=== PATIENT | female | born 1940 | race Caucasian/White ===

== ENCOUNTER → 2017-12-29 12:23 | Outpatient (CLI) | payer MEDICARE, SELFPAY ==
--- NOTE | 2017-12-29 12:25 | ECHOD_ITS ---
Reason For Study: Edema Procedure This was a 2D Doppler, Color Flow transthoracic echocardiogram. Exam performed in department. Left Ventricle Normal LV size. Left ventricular systolic function is normal. The estimated ejection fraction is 55 %. Transmitral diastolic flow velocities suggest mild (stage 1) diastolic dysfunction (reversed pattern). No regional wall motion abnormalities noted. Right Ventricle Normal RV size. Normal systolic function. Atria Normal left atrium. Normal right atrium. Mitral Valve Normal mitral valve. Mild (1+) eccentric mitral valve insufficiency. Tricuspid Valve Normal tricuspid valve. Mild to moderate (1-2+) tricuspid valve insufficiency. Mild pulmonary hypertension. Pulmonary artery systolic pressure is 49 mmHg. Aortic Valve Trisinus/trileaflet aortic valve. Mild focal aortic valve thickening. Pulmonic Valve The pulmonic valve is not well visualized. Great Vessels Calcified aortic root. The pulmonary artery is normal size. Normal inferior vena cava. Pericardium/Pleural No pericardial effusion. MMode/2D Measurements & Calculations LVIDd: 5.4 cm IVSd: 1.3 cm Ao root diam: 3.0 cm LVIDs: 3.7 cm LVPWd: 1.0 cm LA dimension: 3.3 cm FS: 30.9 % LAV(MOD-sp4): 31.8 ml LA A4 area: 14.6 cm2 Time Measurements MV dec time: 0.20 sec Doppler Measurements & Calculations MV E max hiram: 79.3 cm/sec Lat Peak E' Hiram: 7.0 cm/sec Med Peak E' Hiram: 8.8 cm/sec MV A max hiram: 111.7 cm/sec E/E' lat: 11.4 E/E' med: 9.0 MV E/A: 0.71 MV V2 max: 138.7 cm/sec MV P1/2t max hirma: 106.9 cm/sec Ao V2 max: 159.9 cm/sec MV max P.7 mmHg MV P1/2t: 89.1 msec Ao max P.2 mmHg MV V2 mean: 86.0 cm/sec MV dec slope: 351.5 cm/sec2 Ao V2 mean: 99.8 cm/sec MV mean P.3 mmHg MVA(P1/2t): 2.5 cm2 Ao mean P.6 mmHg MV V2 VTI: 33.8 cm Ao V2 VTI: 31.2 cm LV V1 max: 111.7 cm/sec PA V2 max: 95.3 cm/sec TR max hiram: 332.5 cm/sec LV V1 max P.0 mmHg TR max P.2 mmHg LV V1 mean P.1 mmHg LV V1 mean: 65.5 cm/sec LV V1 VTI: 21.8 cm Interpretation Summary Normal LV size. Left ventricular systolic function is normal. The estimated ejection fraction is 55 %. Mild (1+) eccentric mitral valve insufficiency. Mild pulmonary hypertension. Pulmonary artery systolic pressure is 49 mmHg. Ordering Physician: Del Carty Referring Physician: Del Carty Performed By: Rickie Horne RCS
== END ==
DX: R60.0 Localized edema (principal)
CPT/HCPCS: 93306

== ENCOUNTER → 2018-08-25 09:35 | Outpatient (CLI) | payer MEDICARE, SELFPAY ==
[2018-08-25 12:26] LABS: Absolute Lymphocyte Count 1.81 X10^3/ul (0.83-4.51); Basophil# 0.03 X10^3/uL; Basophil% 0.5 % (0-1); Eosinophil# 0.18 X10^3/uL; Eosinophils% 2.8 % (0-5); Hematocrit 43.1 % (37-47); Lymphocyte # 1.81 X10^3/ul (4.0); Lymphocyte % 27.7 % (19-41); Mean Corp Hgb Conc 32.5 g/gl (32-36); Mean Corpuscular Volume 95.4 fL (81-99); Mean Platelet Vol. 9.8 fl (6.2-12.0); Monocyte# 0.53 X10^3/uL; Monocyte% 8.1 % (0-10); Neutrophil # 3.98 X10^3/uL (2.7-7.7); Neutrophil % 60.7 % (47-70); Platelet Count 273 K/mm3 (150-450); RBC Distribution Width CV 13.7 % (11.6-14.6); RBC Distribution Width SD 45.5 fl (35.1-43.9); Red Blood Count 4.52 M/mm3 (4.2-5.4); White Blood Count 6.5 K/mm3 (4.4-11.0)
[2018-08-25 12:44] LABS: POSITIVE COUNT NO; POSITIVE DIFFERENTIAL NO; POSITIVE MORPHOLOGY NO
[2018-08-25 13:19] LABS: ALB/GLOB Ratio 0.9 RATIO (0.9-2.4); AST(SGOT) 21 U/L (15-37); Alanine Aminotransfer ALT/SGPT 24 U/L (13-56); Albumin, Serum 3.3 g/dL (3.2-5.0); Alkaline Phosphatase 100 U/L (45-117); Anion Gap 8 (5-15); BUN 5 mg/dL (7-18); BUN/Creat Ratio 6.2 RATIO (10-20); Calcium,Total 8.9 mg/dL (8.5-10.1); Chloride 96 mmol/L (98-107); Cholesterol 201 mg/dL (200); EST Glomerular Filtration Rate 73 mL/min (>60); Est Glom Filt Rate - Afr Amer 89 mL/min (>60); Globulin 3.8 g/dL (2.2-4.2); Glucose 94 mg/dL (74-106); High Density Lipoprotein 67 mg/dL; Potassium 2.6 mmol/L (3.5-5.1); Protein, Total 7.1 g/dL (6.4-8.2); Sodium Level 136 mmol/L (136-145); Triglycerides 126 mg/dL; Very Low Density Lipoprotein 25 mg/dL (5-40)
== END ==
LOC: LAB.FUTURE 07-05 02:42 → BFHLAB 09-20 15:21
PROVIDERS: Family Provider Family Medicine; PCP Family Medicine; Visit Provider Family Medicine
DX: I10 Essential (primary) hypertension (principal); K21.9 Gastro-esophageal reflux disease without esophagitis
CPT/HCPCS: 36415; 80053; 80061; 85025

== ENCOUNTER → 2019-03-17 09:50 | Outpatient (CLI) | payer MEDICARE, SELFPAY ==
[2019-03-17 09:53] LABS: Bacteria 0 SEEN /hpf (None Seen); Mucous, Urine 0 SEEN /hpf (<or=2+); Red Blood Cells-Urine 0 SEEN /hpf (0-5); Squamous Epithelial Cells - UA 0 SEEN /hpf (5-10); White Blood Cells 0 SEEN /hpf (0-5)
[2019-03-17 12:39] LABS: Color, Urine Straw (Yellow); Glucose, Dipstick Normal (Normal); Ketone-Dipstick Negative (Negative); Leukocyte Esterase-Dipstick Negative /ul (Negative); Nitrite-Dipstick Negative (Negative); Occult Blood-Urine Negative /ul (Negative); Protein-Dipstick Negative (Negative); Urine Bilirubin Dipstick Negative (Negative); Urine Clarity Clear (Clear); Urine Urobilinogen Normal (Normal)
[2019-03-17 12:42] LABS: Absolute Lymphocyte Count 1.93 X10^3/uL (0.83-4.51); Absolute Neutrophil Count 9.2 X10^3/uL (2.0-7.7); Basophil# 0.05 X10^3/uL; Basophil% 0.4 % (0-1); Eosinophil# 0.09 X10^3/uL; Eosinophils% 0.7 % (0-5); Hematocrit 44.1 % (37-47); Hemoglobin 15.2 g/dL (12.0-15.0); Lymphocyte # 1.93 X10^3/ul (4.0); Mean Corp Hgb Conc 34.5 g/dL (32-36); Mean Corpuscular Hgb 32.5 pg (27.0-32.0); Mean Corpuscular Volume 94.2 fL (81-99); Mean Platelet Vol. 9.5 fl (6.2-12.0); Monocyte% 5.8 % (0-10); NRBC Flagged by Analyzer 0 % (0-5); Neutrophil # 9.22 X10^3/uL (2.7-7.7); Neutrophil % 76.4 % (47-70); Platelet Count 322 K/mm3 (150-450); RBC Distribution Width CV 13.2 % (11.6-14.6); RBC Distribution Width SD 45.1 fl (35.1-43.9); Red Blood Count 4.68 M/mm3 (4.2-5.4); White Blood Count 12.1 K/mm3 (4.4-11.0)
[2019-03-17 13:52] LABS: ALB/GLOB Ratio 0.9 RATIO (0.9-2.4); AST(SGOT) 14 U/L (15-37); Alanine Aminotransfer ALT/SGPT 16 U/L (13-56); Albumin, Serum 3.6 g/dL (3.2-5.0); Alkaline Phosphatase 124 U/L (45-117); Anion Gap 11 (5-15); BUN 6 mg/dL (7-18); BUN/Creat Ratio 6.9 RATIO (10-20); Calcium,Total 9.4 mg/dL (8.5-10.1); Chloride 88 mmol/L (98-107); Creatinine, Serum 0.87 mg/dL (0.55-1.02); EST Glomerular Filtration Rate 67 mL/min (>60); Est Glom Filt Rate - Afr Amer 81 mL/min (>60); Globulin 3.9 g/dL (2.2-4.2); Glucose 75 mg/dL (74-106); Protein, Total 7.5 g/dL (6.4-8.2); Sodium Level 134 mmol/L (136-145)
[2019-03-17 15:56] LABS: Potassium 2.1 mmol/L (3.5-5.1)
== END ==
PROVIDERS: Family Provider Family Medicine; PCP Family Medicine; Visit Provider Family Medicine
DX: I10 Essential (primary) hypertension (principal)
CPT/HCPCS: 36415; 80053; 81001; 85025

== ENCOUNTER → 2019-03-21 14:21 | Outpatient (CLI) | payer MEDICARE, SELFPAY ==
[2019-03-21 18:01] LABS: Anion Gap 8 (5-15); BUN 4 mg/dL (7-18); BUN/Creat Ratio 3.8 RATIO (10-20); Calcium,Total 9.3 mg/dL (8.5-10.1); Chloride 88 mmol/L (98-107); Creatinine, Serum 1.04 mg/dL (0.55-1.02); EST Glomerular Filtration Rate 54 mL/min (>60); Est Glom Filt Rate - Afr Amer 66 mL/min (>60); Glucose 95 mg/dL (74-106); Potassium 2.8 mmol/L (3.5-5.1); Sodium Level 131 mmol/L (136-145)
== END ==
LOC: LAB.FUTURE 09-20 15:23 → BFHLAB 09-20 15:23
PROVIDERS: Family Provider Family Medicine; PCP Family Medicine; Visit Provider Family Medicine
DX: E87.6 Hypokalemia (principal)
CPT/HCPCS: 36415; 80048

== ENCOUNTER → 2019-03-29 14:43 | Outpatient (CLI) | payer MEDICARE, SELFPAY ==
[2019-03-29 17:47] LABS: Anion Gap 7 (5-15); BUN 5 mg/dL (7-18); BUN/Creat Ratio 5.7 RATIO (10-20); Chloride 96 mmol/L (98-107); Creatinine, Serum 0.88 mg/dL (0.55-1.02); EST Glomerular Filtration Rate 66 mL/min (>60); Est Glom Filt Rate - Afr Amer 80 mL/min (>60); Glucose 105 mg/dL (74-106); Potassium 3.4 mmol/L (3.5-5.1); Sodium Level 136 mmol/L (136-145)
== END ==
LOC: LAB.FUTURE 03-30 10:48 → BFHLAB 09-20 15:24
PROVIDERS: Family Provider Family Medicine; PCP Family Medicine; Visit Provider Family Medicine
DX: I10 Essential (primary) hypertension (principal); E87.6 Hypokalemia; Z51.81 Encounter for therapeutic drug level monitoring
CPT/HCPCS: 36415; 80048

== ENCOUNTER → 2019-08-29 13:13 | Outpatient (CLI) | payer MEDICARE, SELFPAY ==
[2019-08-29 13:02] VITALS: BMI 32.5
--- NOTE | 2019-08-29 13:14 | RAD_ITS ---
STUDY: X-RAY - LEFT HAND, ATTENTION FOURTH AND FIFTH FINGERS REASON FOR EXAM: Female, 78 years old. 4-5 FINGER INJURY, FALL LAST WEEK TECHNIQUE: 3 view(s) of the finger were obtained. COMPARISON: None. FINDINGS: Normal metacarpal head. Normal metacarpophalangeal joint. Normal proximal phalanx. Normal middle phalanx. Normal distal phalanx. Normal proximal interphalangeal joint. Normal distal interphalangeal joint. RAD/Finger(s) Min 2 Views IMPRESSION: Normal x-ray examination of the finger. Electronically Signed: Devon Zendejas, at 13:51 EST , Service support ,
== END ==
PROVIDERS: PCP Family Medicine; Referring Provider Physician Assistant Surgical; Visit Provider Physician Assistant Surgical
DX: S60.222A Contusion of left hand, initial encounter (principal); S60.00XA Contusion of unspecified finger without damage to nail, initial encounter; S60.052A Contusion of left little finger without damage to nail, initial encounter; X58.XXXA Exposure to other specified factors, initial encounter; Y93.9 Activity, unspecified; Y92.9 Unspecified place or not applicable; Y99.9 Unspecified external cause status
CPT/HCPCS: 73140

== ENCOUNTER → 2019-09-05 16:04 | Outpatient (CLI) | payer MEDICARE, SELFPAY ==
[2019-08-29 13:02] VITALS: BMI 32.5
[2019-09-05 17:30] LABS: Anion Gap 4 (5-15); BUN 8 mg/dL (7-18); BUN/Creat Ratio 7.1 RATIO (10-20); Calcium,Total 9.2 mg/dL (8.5-10.1); Chloride 97 mmol/L (98-107); Creatinine, Serum 1.12 mg/dL (0.55-1.02); EST Glomerular Filtration Rate 50 mL/min (>60); Est Glom Filt Rate - Afr Amer 60 mL/min (>60); Glucose 108 mg/dL (74-106); Potassium 2.9 mmol/L (3.5-5.1); Sodium Level 135 mmol/L (136-145)
== END ==
PROVIDERS: PCP Family Medicine; Visit Provider Family Medicine
DX: I10 Essential (primary) hypertension (principal)
CPT/HCPCS: 36415; 80048

== ENCOUNTER → 2019-09-21 14:10 | Outpatient (CLI) | payer MEDICARE, SELFPAY ==
[2019-08-29 13:02] VITALS: BMI 32.5
[2019-09-21 16:12] LABS: Anion Gap 8 (5-15); BUN 4 mg/dL (7-18); BUN/Creat Ratio 4.9 RATIO (10-20); Calcium,Total 8.7 mg/dL (8.5-10.1); Chloride 88 mmol/L (98-107); Creatinine, Serum 0.82 mg/dL (0.55-1.02); EST Glomerular Filtration Rate 72 mL/min (>60); Est Glom Filt Rate - Afr Amer 87 mL/min (>60); Glucose 90 mg/dL (74-106); Potassium 2.6 mmol/L (3.5-5.1); Sodium Level 128 mmol/L (136-145)
== END ==
PROVIDERS: PCP Family Medicine; Visit Provider Family Medicine
DX: I10 Essential (primary) hypertension (principal)
CPT/HCPCS: 36415; 80048

== ENCOUNTER → 2019-12-19 09:57 | Outpatient (CLI) | payer MEDICARE, SELFPAY ==
[2019-08-29 13:02] VITALS: BMI 32.5
[2019-12-19 12:15] LABS: Absolute Lymphocyte Count 1.72 X10^3/uL (0.83-4.51); Absolute Neutrophil Count 4.2 X10^3/uL (2.0-7.7); Basophil# 0.04 X10^3/uL; Basophil% 0.6 % (0-1); Eosinophil# 0.16 X10^3/uL; Eosinophils% 2.4 % (0-5); Hematocrit 43.2 % (37-47); Hemoglobin 14.7 g/dL (12.0-15.0); Lymphocyte # 1.72 X10^3/ul (4.0); Lymphocyte % 25.6 % (19-41); Mean Corpuscular Hgb 33.9 pg (27.0-32.0); Mean Corpuscular Volume 99.5 fL (81-99); Mean Platelet Vol. 9.8 fl (6.2-12.0); Monocyte# 0.55 X10^3/uL; Monocyte% 8.2 % (0-10); NRBC Flagged by Analyzer 0 % (0-5); Neutrophil % 62.6 % (47-70); Platelet Count 303 K/mm3 (150-450); RBC Distribution Width CV 12.1 % (11.6-14.6); RBC Distribution Width SD 44.8 fl (35.1-43.9); Red Blood Count 4.34 M/mm3 (4.2-5.4); White Blood Count 6.7 K/mm3 (4.4-11.0)
[2019-12-19 13:00] LABS: ALB/GLOB Ratio 0.8 RATIO (0.9-2.4); AST(SGOT) 19 U/L (15-37); Alanine Aminotransfer ALT/SGPT 30 U/L (13-56); Albumin, Serum 3.3 g/dL (3.2-5.0); Alkaline Phosphatase 129 U/L (45-117); Anion Gap 7 (5-15); BUN 5 mg/dL (7-18); BUN/Creat Ratio 6.5 RATIO (10-20); Chloride 92 mmol/L (98-107); Cholesterol 195 mg/dL (200); Creatinine, Serum 0.77 mg/dL (0.55-1.02); EST Glomerular Filtration Rate 77 mL/min (>60); Est Glom Filt Rate - Afr Amer 93 mL/min (>60); Globulin 4.1 g/dL (2.2-4.2); Glucose 100 mg/dL (74-106); High Density Lipoprotein 83 mg/dL; Potassium 2.8 mmol/L (3.5-5.1); Protein, Total 7.4 g/dL (6.4-8.2); Sodium Level 134 mmol/L (136-145); Triglycerides 100 mg/dL; Very Low Density Lipoprotein 20 mg/dL (5-40)
== END ==
PROVIDERS: PCP Family Medicine; Visit Provider Family Medicine
DX: I10 Essential (primary) hypertension (principal)
CPT/HCPCS: 36415; 80053; 80061; 85025

== ENCOUNTER → 2020-02-19 10:41 | Outpatient (CLI) | payer MEDICARE, SELFPAY ==
[2019-08-29 13:02] VITALS: BMI 32.5
== END ==
PROVIDERS: PCP Family Medicine; Referring Provider Family Medicine; Visit Provider Family Medicine
DX: R00.0 Tachycardia, unspecified (principal); I10 Essential (primary) hypertension
CPT/HCPCS: 93225; 93226

== ENCOUNTER → 2020-08-02 13:46 | Outpatient (CLI) | payer MEDICARE, SELFPAY ==
[2019-08-29 13:02] VITALS: BMI 32.5
[2020-08-02 14:59] LABS: Absolute Lymphocyte Count 1.28 X10^3/uL (0.83-4.51); Absolute Neutrophil Count 6.9 X10^3/uL (2.0-7.7); Basophil# 0.03 X10^3/uL; Basophil% 0.3 % (0-1); Eosinophils% 1.1 % (0-5); Hemoglobin 14.1 g/dL (12.0-15.0); Lymphocyte # 1.28 X10^3/ul (4.0); Lymphocyte % 14.2 % (19-41); Mean Corp Hgb Conc 35.3 g/dL (32-36); Mean Corpuscular Hgb 33.6 pg (27.0-32.0); Mean Corpuscular Volume 95.2 fL (81-99); Mean Platelet Vol. 8.8 fl (6.2-12.0); Monocyte# 0.64 X10^3/uL; Monocyte% 7.1 % (0-10); NRBC Flagged by Analyzer 0 % (0-5); Neutrophil # 6.94 X10^3/uL (2.7-7.7); Neutrophil % 76.7 % (47-70); Platelet Count 288 K/mm3 (150-450); RBC Distribution Width SD 41.6 fl (35.1-43.9)
[2020-08-02 16:14] LABS: ALB/GLOB Ratio 0.8 RATIO (0.9-2.4); AST(SGOT) 17 U/L (15-37); Alanine Aminotransfer ALT/SGPT 15 U/L (13-56); Albumin, Serum 3.3 g/dL (3.2-5.0); Alkaline Phosphatase 117 U/L (45-117); Anion Gap 7 (5-15); BUN 5 mg/dL (7-18); BUN/Creat Ratio 5.9 RATIO (10-20); Calcium,Total 8.9 mg/dL (8.5-10.1); Chloride 77 mmol/L (98-107); Creatinine, Serum 0.85 mg/dL (0.55-1.02); EST Glomerular Filtration Rate 68 mL/min (>60); Est Glom Filt Rate - Afr Amer 83 mL/min (>60); Glucose 95 mg/dL (74-106); Potassium 2.4 mmol/L (3.5-5.1); Protein, Total 7.3 g/dL (6.4-8.2); Sodium Level 124 mmol/L (136-145)
== END ==
PROVIDERS: PCP Family Medicine; Visit Provider Family Medicine
DX: I10 Essential (primary) hypertension (principal); E87.6 Hypokalemia
CPT/HCPCS: 36415; 80053; 85025

== ENCOUNTER → 2020-12-31 09:24 | Outpatient (CLI) | payer MEDICARE, SELFPAY ==
[2019-08-29 13:02] VITALS: BMI 32.5
[2020-12-31 10:14] LABS: Absolute Lymphocyte Count 1.57 X10^3/uL (0.83-4.51); Absolute Neutrophil Count 4.6 X10^3/uL (2.0-7.7); Basophil# 0.04 X10^3/uL; Basophil% 0.6 % (0-1); Eosinophil# 0.15 X10^3/uL; Eosinophils% 2.2 % (0-5); Hematocrit 40.9 % (37-47); Hemoglobin 13.8 g/dL (12.0-15.0); Lymphocyte # 1.57 X10^3/ul (0.83-4.51); Lymphocyte % 22.9 % (19-41); Mean Corp Hgb Conc 33.7 g/dL (32-36); Mean Corpuscular Hgb 32.5 pg (27.0-32.0); Mean Corpuscular Volume 96.2 fL (81-99); Mean Platelet Vol. 9.1 fl (6.2-12.0); Monocyte# 0.54 X10^3/uL; Monocyte% 7.9 % (0-10); NRBC Flagged by Analyzer 0 % (0-5); Neutrophil # 4.55 X10^3/uL (2.7-7.7); Neutrophil % 66.1 % (47-70); Platelet Count 305 K/mm3 (150-450); RBC Distribution Width CV 12.3 % (11.6-14.6); RBC Distribution Width SD 43.5 fl (35.1-43.9); Red Blood Count 4.25 M/mm3 (4.2-5.4); White Blood Count 6.9 K/mm3 (4.4-11.0)
[2020-12-31 11:12] LABS: ALB/GLOB Ratio 0.9 RATIO (0.9-2.4); AST(SGOT) 15 U/L (15-37); Alanine Aminotransfer ALT/SGPT 12 U/L (13-56); Albumin, Serum 3.4 g/dL (3.2-5.0); Alkaline Phosphatase 111 U/L (45-117); Anion Gap 5 (5-15); BUN 5 mg/dL (7-18); BUN/Creat Ratio 6.3 RATIO (10-20); Calcium,Total 9.3 mg/dL (8.5-10.1); Chloride 90 mmol/L (98-107); EST Glomerular Filtration Rate 74 mL/min (>60); Est Glom Filt Rate - Afr Amer 89 mL/min (>60); Globulin 3.9 g/dL (2.2-4.2); Glucose 95 mg/dL (74-106); Potassium 2.8 mmol/L (3.5-5.1); Protein, Total 7.3 g/dL (6.4-8.2); Sodium Level 132 mmol/L (136-145)
== END ==
PROVIDERS: PCP Family Medicine; Visit Provider Family Medicine
DX: I10 Essential (primary) hypertension (principal); E87.6 Hypokalemia
CPT/HCPCS: 36415; 80053; 85025

== ENCOUNTER → 2021-07-01 17:46 | Outpatient (CLI) | payer MEDICARE, SELFPAY ==
--- NOTE | 2021-07-01 18:00 | RAD_ITS ---
History: PAIN OVER LUMBAR SPINE EXAMINATION/TECHNIQUE: XR Spine Lumbar Min 4 Views: COMPARISON: None FINDINGS: VERTEBRAE: Preserved vertebral body height. No fracture. Mild degenerative anterolisthesis of L4 on L5. Degenerative changes of the posterior elements. Preservation of the normal lumbar lordosis. DISCS: Degenerative changes are noted. INCLUDED ABDOMEN: Included bowel gas pattern is non-obstructive. Moderate atherosclerotic calcification of the abdominal aorta. RAD/L/S Spine Min 4 Views IMPRESSION: No fracture or other acute abnormality. Degenerative changes. at 0800 Reported and signed by: Turner Coon MD Electronically Signed: Turner Coon MD at 7:59 EST Tel , Service support ,
--- NOTE | 2021-07-01 18:10 | RAD_ITS ---
EXAM: XR RIGHT HIP WITH PELVIS WHEN PERFORMED, 2 OR 3 VIEWS : 1940 CLINICAL INDICATION: RIGHT LEG WEAKNESS TECHNIQUE: Two or three views of the right hip with pelvis when performed. This report was created using [employer] report generation technology. COMPARISON: None. FINDINGS: BONES/JOINTS: Unremarkable. No displaced fracture. No destructive or sclerotic lesions. Note that overlapping bowel shadows may however obscure fine detail. Sacroiliac joint is unremarkable. No widening of the pubic symphysis. The articular structures are unremarkable. SOFT TISSUES: Unremarkable. No soft tissue swelling or gas. RAD/HIP, UNI W/ Pelvis 2-3 Views IMPRESSION: No evidence of displaced pelvic or hip fracture. at 0759 Reported and signed by: Turner Coon MD Electronically Signed: Turner Coon MD at 7:59 EST Tel , Service support ,
== END ==
PROVIDERS: PCP Family Medicine; Visit Provider Family Medicine
DX: M51.16 Intervertebral disc disorders with radiculopathy, lumbar region (principal)
CPT/HCPCS: 72110; 73502

== ENCOUNTER 2021-07-22 16:02 | Outpatient (CLI) | payer MEDICARE, SELFPAY ==
--- NOTE | 2021-07-22 16:06 | RAD_ITS ---
INDICATION: L HAND NUMBNESS EXAMINATION/TECHNIQUE: X-RAY - XR Spine Thoracic 3 Views COMPARISON: Cervical spine x-rays 07/22/2021. Also compared with lumbar spine x-rays 07/01/2021 FINDINGS: Smooth, gradual lateral curvature, convex right. This is likely positional. Normal kyphotic curvature. T8 compression fracture with up to 75% vertebral body height loss. No other compression fracture. Multilevel intervertebral disc height loss and degenerative endplate changes most notably in the mid upper thoracic spine. Visualized portions of the proximal lumbar spine show moderately advanced degenerative disc and endplate changes and prominent right-sided osteophytes. Dense intimal calcifications thoracic aortic arch. RAD/Thoracic Spine 3 Views IMPRESSION: Degenerative changes as above. T8 compression fracture appears to been present at least dating back to 07/01/2021. Electronically Signed: Alan Garcia DO at 0:11 EST Tel , Service support ,
--- NOTE | 2021-07-22 16:06 | RAD_ITS ---
INDICATION: L HAND NUMBNESS EXAMINATION/TECHNIQUE: X-RAY - XR Spine Cervical 4 or 5 Views COMPARISON: Thoracic spine x-rays 07/22/2021 FINDINGS: VERTEBRAE: Preserved vertebral body height. No fracture. No spondylolisthesis. Preservation of the normal cervical lordosis. There is significant facet arthropathy C2-3 and C3-4 levels which does appear to result in some neural foraminal narrowing on the oblique views however assessment is limited with suboptimal projections. DISCS: Mild C4-C5 and significant C5-6 degenerative disc and endplate changes. The lower half of C6 and C7 vertebral bodies are not visualized due to overlying shoulder girdle. NECK SOFT TISSUES: No prevertebral soft tissue widening. LUNG APICES: Clear. Note of thoracic aortic arch intimal calcifications. Likely intra-articular loose bodies right glenohumeral joint. RAD/Cerv Spine 4 or 5 Views IMPRESSION: No evidence of acute fracture or spondylolisthesis. Significant degenerative facet and endplate changes as above. Electronically Signed: Alan Garcia DO at 0:06 EST Tel , Service support ,
== END 2021-07-22 23:59 | disposition short-term general hospital (02) ==
LOC: RAD 16:04
PROVIDERS: PCP Family Medicine; Referring Provider Family Medicine; Visit Provider Family Medicine
DX: M51.16 Intervertebral disc disorders with radiculopathy, lumbar region (principal)
CPT/HCPCS: 72050; 72072

== ENCOUNTER 2021-07-30 17:28 | Outpatient (CLI) | payer MEDICARE, SELFPAY ==
--- NOTE | 2021-07-30 18:15 | MRI_ITS ---
STUDY: MRI LUMBAR SPINE WITHOUT CONTRAST REASON FOR EXAM: Female, 80 years old. RT SIDED PAIN AND WEAKNESS TECHNIQUE: Standardized fat and water weighted pulse sequences were obtained in the sagittal and axial planes. COMPARISON: 07/01/2021 lumbar spine radiograph FINDINGS: T12-L1: Normal endplates. Normal disc height, hydration and morphology. Normal bilateral facet joints. Normal central canal and bilateral lateral recesses. Normal bilateral intervertebral neural foramina. Normal lumbar lordosis. Grade 1 anterolisthesis at L3-4 and L4-5. Dextro listhesis of L1 on L2 and levo listhesis of L3 on L4 redemonstrated with similar slight levoscoliosis centered on L2-3. Normal conus medullaris that terminates at the level of L1 L1-2: MODIC type II endplate change. Disc bulge and mild bilateral facet arthrosis with mild spinal canal stenosis. No significant neural foraminal stenosis. L2-3: MODIC type II endplate change. Disc bulge and mild bilateral facet arthrosis with mild effacement of the spinal canal. Mild right neural foraminal stenosis. L3-4: Normal endplates. Disc bulge with right lateral recess protrusion and superior migration. There is also epidural lipomatosis and moderate facet hypertrophy with moderate effacement of the spinal canal. Severe right and mild left neural foraminal stenosis. L4-5: Normal endplates. Posterior disc uncovering. Moderate bilateral facet arthrosis. Normal central canal and bilateral lateral recesses. Normal bilateral intervertebral neural foramina. L5-S1: Normal endplates. Normal disc height, hydration and morphology. Mild left facet arthrosis. Normal central canal and bilateral lateral recesses. Normal bilateral intervertebral neural foramina. Normal visualized sacral ala. There is mild to moderate paraspinal muscular atrophy. Small left renal cysts. MRI/Spine Lumbar (Routine) IMPRESSION: Severe right and mild left neural foraminal stenosis at L3-4. There is also moderate effacement of the spinal canal at this level. Mild effacement of the spinal canal and mild right neural foraminal stenosis at L2-3. Multilevel spondylolisthesis and mild levoscoliosis redemonstrated. Electronically Signed: Favio Monroy MD at 3:19 EST Tel , Service support ,
== END 2021-07-30 23:59 | disposition short-term general hospital (02) ==
PROVIDERS: PCP Family Medicine; Visit Provider Family Medicine
DX: M51.16 Intervertebral disc disorders with radiculopathy, lumbar region (principal)
CPT/HCPCS: 72148

== ENCOUNTER → 2021-11-20 | Outpatient (CLI) | payer MEDICARE, SELFPAY ==
--- NOTE | 2021-11-20 11:39 | RAD_ITS ---
STUDY: X-RAY - RIGHT KNEE REASON FOR EXAM: Female, 80 years old. Pain. TECHNIQUE: 4 view(s) of the knee. COMPARISON: None. FINDINGS: Normal visualized distal femur. Normal visualized proximal tibia and fibula. Normal proximal tibiofibular articulation. Moderate arthrosis of the medial compartment osteophytes. Mild lateral compartmental arthrosis with osteophytes. Mild arthrosis of the patellofemoral compartment. The soft tissue structures are unremarkable. RAD/Knee 4 or More Views IMPRESSION: Tricompartmental arthrosis as described. No acute abnormality, chondrocalcinosis or erosive changes. Electronically Signed: Alfa Vivas MD at 12:17 EDT ,
== END | disposition home or self-care (01) ==
PROVIDERS: PCP Family Medicine; Referring Provider Family Medicine; Visit Provider Family Medicine
DX: M25.561 Pain in right knee (principal)
CPT/HCPCS: 73564

== ENCOUNTER → 2021-11-27 | Outpatient (CLI) | payer MEDICARE, SELFPAY ==
[2021-11-27 10:00] LABS: Absolute Lymphocyte Count 1.58 X10^3/uL (0.83-4.51); Absolute Neutrophil Count 4.2 X10^3/uL (2.0-7.7); Basophil# 0.04 X10^3/uL; Basophil% 0.6 % (0-1); Eosinophil# 0.03 X10^3/uL; Eosinophils% 0.5 % (0-5); Hematocrit 40.4 % (37-47); Hemoglobin 13.9 g/dL (12.0-15.0); Lymphocyte # 1.58 X10^3/ul (0.83-4.51); Mean Corp Hgb Conc 34.4 g/dL (32-36); Mean Corpuscular Hgb 32.7 pg (27.0-32.0); Mean Corpuscular Volume 95.1 fL (81-99); Mean Platelet Vol. 9.3 fl (6.2-12.0); Monocyte# 0.47 X10^3/uL; Monocyte% 7.4 % (0-10); NRBC Flagged by Analyzer 0 % (0-5); Neutrophil % 66.3 % (47-70); Platelet Count 268 K/mm3 (150-450); RBC Distribution Width CV 11.9 % (11.6-14.6); Red Blood Count 4.25 M/mm3 (4.2-5.4); White Blood Count 6.3 K/mm3 (4.4-11.0)
[2021-11-27 10:31] LABS: ALB/GLOB Ratio 1.2 RATIO (0.9-2.4); AST(SGOT) 11 U/L (15-37); Alanine Aminotransfer ALT/SGPT 17 U/L (13-56); Albumin, Serum 3.6 g/dL (3.2-5.0); Alkaline Phosphatase 70 U/L (45-117); Anion Gap 5 (5-15); BUN 9 mg/dL (7-18); BUN/Creat Ratio 12.3 RATIO (10-20); Calcium,Total 9.6 mg/dL (8.5-10.1); Chloride 100 mmol/L (98-107); Cholesterol 181 mg/dL (200); Creatinine, Serum 0.73 mg/dL (0.55-1.02); EST Glomerular Filtration Rate 81 mL/min (>60); Est Glom Filt Rate - Afr Amer 98 mL/min (>60); Globulin 3.1 g/dL (2.2-4.2); Glucose 104 mg/dL (74-106); High Density Lipoprotein 97 mg/dL; Potassium 3.3 mmol/L (3.5-5.1); Protein, Total 6.7 g/dL (6.4-8.2); Sodium Level 137 mmol/L (136-145); Triglycerides 73 mg/dL; Very Low Density Lipoprotein 15 mg/dL (5-40)
== END | disposition home or self-care (01) ==
PROVIDERS: PCP Family Medicine; Referring Provider Family Medicine; Visit Provider Family Medicine
DX: Z00.00 Encounter for general adult medical examination without abnormal findings (principal); I10 Essential (primary) hypertension; K21.9 Gastro-esophageal reflux disease without esophagitis
CPT/HCPCS: 36415; 80053; 80061; 85025

== ENCOUNTER → 2022-01-28 | Outpatient (CLI) | payer MEDICARE, SELFPAY ==
--- NOTE | 2022-01-28 13:27 | RAD_ITS ---
EXAM: XR LUMBOSACRAL SPINE, 2 OR 3 VIEWS CLINICAL INDICATION: BACK PAIN TECHNIQUE: Frontal and lateral views of the lumbar spine and sacrum. This report was created using [employer] report generation technology. COMPARISON: 07/01/2021 FINDINGS: VERTEBRAE: There is a scoliotic deformity in the mid lumbar spine. There is bony neural foraminal narrowing at L5-S1. Preserved vertebral body height. No fracture. No spondylolisthesis. No significant facet arthropathy. DISC SPACES: There is disc space narrowing at L2-3 L3-4 and L4-5. GASTROINTESTINAL TRACT: Unremarkable as visualized. Included bowel gas pattern is non-obstructive. RAD/Lumbar Spine 2 or 3 Views IMPRESSION: Curvature of the lumbar spine which is increased from the reference exam. There are degenerative changes with disc space narrowing and bony neural foraminal narrowing. Electronically Signed: Matt Molina MD at 17:59 EDT ,
--- NOTE | 2022-01-28 13:35 | RAD_ITS ---
EXAM: XR THORACIC SPINE, 3 VIEWS CLINICAL INDICATION: BACK PAIN TECHNIQUE: Frontal, lateral and swimmer''s views of the thoracic spine. This report was created using [employer] report generation technology. COMPARISON: 07/22/2021 FINDINGS: VERTEBRAE: There is a compression deformity of the mid thoracic spine which is unchanged from reference exam. No spondylolisthesis. Preservation of the normal thoracic kyphosis. No significant facet arthropathy. DISC SPACES: Unremarkable. Disc spaces are maintained. RAD/Thoracic Spine 3 Views IMPRESSION: Stable compression deformity of a midthoracic vertebral body. There is no acute osseous abnormality. Electronically Signed: Matt Molina MD at 18:00 EDT ,
== END | disposition home or self-care (01) ==
PROVIDERS: PCP Family Medicine; Referring Provider Anesthesiology Pain Medicine; Visit Provider Anesthesiology Pain Medicine
DX: M54.9 Dorsalgia, unspecified (principal)
CPT/HCPCS: 72072; 72100

== ENCOUNTER → 2022-12-17 | Outpatient (CLI) | payer MEDICARE, SELFPAY ==
[2022-12-17 15:30] LABS: Absolute Lymphocyte Count 1.66 X10^3/uL (0.83-4.51); Absolute Neutrophil Count 5.2 X10^3/uL (2.0-7.7); Basophil# 0.04 X10^3/uL; Basophil% 0.5 % (0-1); Eosinophils% 2.6 % (0-5); Hematocrit 44.3 % (37-47); Hemoglobin 14.5 g/dL (12.0-15.0); Lymphocyte # 1.66 X10^3/ul (0.83-4.51); Lymphocyte % 21.5 % (19-41); Mean Corp Hgb Conc 32.7 g/dL (32-36); Mean Corpuscular Hgb 32.2 pg (27.0-32.0); Mean Corpuscular Volume 98.2 fL (81-99); Mean Platelet Vol. 10.1 fl (6.2-12.0); Monocyte# 0.61 X10^3/uL; Monocyte% 7.9 % (0-10); NRBC Flagged by Analyzer 0 % (0-5); Neutrophil # 5.19 X10^3/uL (2.7-7.7); Neutrophil % 67.1 % (47-70); Platelet Count 299 K/mm3 (150-450); RBC Distribution Width CV 13.1 % (11.6-14.6); Red Blood Count 4.51 M/mm3 (4.2-5.4); White Blood Count 7.7 K/mm3 (4.4-11.0)
[2022-12-17 16:00] LABS: ALB/GLOB Ratio 0.9 RATIO (0.9-2.4); AST(SGOT) 19 U/L (15-37); Alanine Aminotransfer ALT/SGPT 16 U/L (13-56); Albumin, Serum 3.4 g/dL (3.2-5.0); Alkaline Phosphatase 96 U/L (45-117); Anion Gap 8 (5-15); BUN 10 mg/dL (7-18); BUN/Creat Ratio 10.5 RATIO (10-20); Calcium,Total 9.2 mg/dL (8.5-10.1); Chloride 99 mmol/L (98-107); Cholesterol 208 mg/dL (200); Creatinine, Serum 0.95 mg/dL (0.55-1.02); EST Glomerular Filtration Rate 60 mL/min (>60); Est Glom Filt Rate - Afr Amer 72 mL/min (>60); Globulin 3.7 g/dL (2.2-4.2); Glucose 90 mg/dL (74-106); High Density Lipoprotein 92 mg/dL; Potassium 3.5 mmol/L (3.5-5.1); Protein, Total 7.1 g/dL (6.4-8.2); Sodium Level 137 mmol/L (136-145); Thyroid Stim Hormone (TSH) 1.53 uIU/mL (0.358-3.74); Triglycerides 82 mg/dL; Very Low Density Lipoprotein 16 mg/dL (5-40)
== END | disposition home or self-care (01) ==
LOC: BFHLAB 11:37
PROVIDERS: PCP Family Medicine; Referring Provider Family Medicine; Visit Provider Family Medicine
DX: Z00.00 Encounter for general adult medical examination without abnormal findings (principal); I10 Essential (primary) hypertension; K21.9 Gastro-esophageal reflux disease without esophagitis; E78.5 Hyperlipidemia, unspecified; E87.6 Hypokalemia
CPT/HCPCS: 36415; 80053; 80061; 84443; 85025

== ENCOUNTER → 2023-01-06 | Outpatient (CLI) | payer MEDICARE, SELFPAY ==
--- NOTE | 2023-01-06 08:57 | ECHOCS_ITS ---
Reason For Study: PHTN, Murmur Procedure This was a 2D Doppler, Color Flow transthoracic echocardiogram. The study was technically difficult. Contrast injection was performed. Left Ventricle Normal size and thickness. The left ventricular ejection fraction is 65 %. Diastolic function is indeterminate. Right Ventricle Normal right ventricle. Atria The left atrium is mildly enlarged. Normal right atrium. Mitral Valve Mild mitral annular calcification. Trivial mitral valve insufficiency. Tricuspid Valve Mild tricuspid valve insufficiency. Right ventricular systolic pressure estimated to be 49 mmHg. Aortic Valve Trisinus/trileaflet aortic valve. Mild (1+) aortic valve insufficiency. Pulmonic Valve The pulmonic valve is not well visualized. Great Vessels Normal sized aortic root. Pericardium/Pleural Epicardial fat. Medication 22 gauge I.V. with prn adaptor inserted into right arm. Diluted definity 2ml given slow IV push to enhance endocardial definition. MMode/2D Measurements & Calculations LVIDd: 5.6 cm IVSd: 0.76 cm Ao root diam: 3.2 cm LVIDs: 3.8 cm LVPWd: 0.73 cm LA dimension: 4.2 cm RVDd: 3.2 cm FS: 32.4 % LAV(MOD-bp): 54.9 ml LVAd ap4: 30.5 cm2 SV(MOD-sp4): 66.5 ml LAV(MOD-bp) Indexed: 29.7 ml/m2 LVLd ap4: 7.2 cm LAV(MOD-sp2): 54.3 ml EDV(MOD-sp4): 105.2 ml LAV(MOD-sp4): 55.7 ml EDV(sp4-el): 109.1 ml LVAs ap4: 16.1 cm2 LVLs ap4: 5.6 cm ESV(MOD-sp4): 38.6 ml ESV(sp4-el): 39.1 ml EF(MOD-sp4): 63.3 % EF(sp4-el): 64.2 % SV(sp4-el): 70.1 ml LA A4 area: 19.4 cm2 LA dimension(2D): 4.4 cm RA A4 area: 13.2 cm2 TAPSE: 2.4 cm Time Measurements MV dec time: 0.31 sec Doppler Measurements & Calculations MV E max hiram: 61.1 cm/sec Lat Peak E' Hiram: 6.4 cm/sec Med Peak E' Hiram: 5.6 cm/sec MV A max hiram: 92.0 cm/sec E/E' lat: 9.5 E/E' med: 11.0 MV E/A: 0.66 MV V2 max: 114.3 cm/sec MV P1/2t max hiram: 70.4 cm/sec Ao V2 max: 137.3 cm/sec MV max P.2 mmHg MV P1/2t: 112.8 msec Ao max P.6 mmHg MV V2 mean: 58.2 cm/sec MV dec slope: 182.7 cm/sec2 Ao V2 mean: 92.2 cm/sec MV mean P.6 mmHg MVA(P1/2t): 1.9 cm2 Ao mean P.9 mmHg MV V2 VTI: 33.2 cm Ao V2 VTI: 31.8 cm AV (velocity ratio): 0.83 AI max hiram: 323.9 cm/sec LV V1 max: 105.9 cm/sec PA V2 max: 65.2 cm/sec AI max P.0 mmHg LV V1 max P.5 mmHg PA V2 mean: 48.7 cm/sec AI dec slope: 113.7 cm/sec2 LV V1 mean P.4 mmHg AI P1/2t: 834.2 msec LV V1 mean: 71.2 cm/sec LV V1 VTI: 26.3 cm TR max hiram: 320.7 cm/sec TR max P.1 mmHg ECHO/Echo Complete W/ Contrast Interpretation Summary The left ventricular ejection fraction is 65 %. Diastolic function is indeterminate. Mild mitral annular calcification. Mild tricuspid valve insufficiency. Right ventricular systolic pressure estimated to be 49 mmHg. Mild (1+) aortic valve insufficiency. The study was technically difficult. Ordering Physician: Angelina Harp Referring Physician: Angelina Harp Performed By: Rickie Horne RCS
== END | disposition home or self-care (01) ==
LOC: CVS 08:56
PROVIDERS: PCP Family Medicine; Referring Provider Family Medicine; Visit Provider Family Medicine
DX: I27.20 Pulmonary hypertension, unspecified (principal); R01.1 Cardiac murmur, unspecified
CPT/HCPCS: 93306; Q9957; A4216; C8929

== ENCOUNTER → 2023-06-01 | Outpatient (CLI) | payer MEDICARE, SELFPAY ==
[2023-06-01 17:40] LABS: Absolute Lymphocyte Count 1.44 X10^3/uL (0.83-4.51); Absolute Neutrophil Count 4.1 X10^3/uL (2.0-7.7); Basophil# 0.05 X10^3/uL; Basophil% 0.8 % (0-1); Eosinophil# 0.07 X10^3/uL; Eosinophils% 1.1 % (0-5); Hematocrit 46.4 % (37-47); Hemoglobin 15.1 g/dL (12.0-15.0); Lymphocyte # 1.44 X10^3/ul (0.83-4.51); Mean Corp Hgb Conc 32.5 g/dL (32-36); Mean Corpuscular Hgb 31.2 pg (27.0-32.0); Mean Corpuscular Volume 95.9 fL (81-99); Mean Platelet Vol. 9.8 fl (6.2-12.0); Monocyte% 9.6 % (0-10); NRBC Flagged by Analyzer 0 % (0-5); Neutrophil # 4.07 X10^3/uL (2.7-7.7); Platelet Count 259 K/mm3 (150-450); RBC Distribution Width SD 42.7 fl (35.1-43.9); Red Blood Count 4.84 M/mm3 (4.2-5.4); White Blood Count 6.3 K/mm3 (4.4-11.0)
[2023-06-01 18:02] LABS: Anion Gap 10 (5-15); BUN 5 mg/dL (7-18); BUN/Creat Ratio 4.5 RATIO (10-20); Calcium,Total 8.9 mg/dL (8.5-10.1); Chloride 89 mmol/L (98-107); EST Glomerular Filtration Rate 50 mL/min (>60); Est Glom Filt Rate - Afr Amer 61 mL/min (>60); Glucose 98 mg/dL (74-106); Potassium 4.5 mmol/L (3.5-5.1); Sodium Level 126 mmol/L (136-145)
== END | disposition home or self-care (01) ==
LOC: BFHLAB 13:55
PROVIDERS: PCP Family Medicine; Referring Provider Family Medicine; Visit Provider Family Medicine
DX: I11.0 Hypertensive heart disease with heart failure (principal); I50.9 Heart failure, unspecified
CPT/HCPCS: 36415; 80048; 85025

== ENCOUNTER → 2024-01-17 | Outpatient (CLI) | payer MEDICARE, SELFPAY ==
[2024-01-17 15:31] LABS: Absolute Lymphocyte Count 1.49 X10^3/uL (0.83-4.51); Basophil# 0.05 X10^3/uL; Basophil% 0.7 % (0-1); Eosinophil# 0.19 X10^3/uL; Eosinophils% 2.6 % (0-5); Hematocrit 44.6 % (37-47); Hemoglobin 15.1 g/dL (12.0-15.0); Lymphocyte # 1.49 X10^3/ul (0.83-4.51); Lymphocyte % 20.1 % (19-41); Mean Corp Hgb Conc 33.9 g/dL (32-36); Mean Corpuscular Hgb 34.7 pg (27.0-32.0); Mean Corpuscular Volume 102.5 fL (81-99); Mean Platelet Vol. 9.5 fl (6.2-12.0); Monocyte# 0.67 X10^3/uL; NRBC Flagged by Analyzer 0 % (0-5); Neutrophil # 4.96 X10^3/uL (2.7-7.7); Neutrophil % 66.9 % (47-70); Platelet Count 278 K/mm3 (150-450); RBC Distribution Width CV 12.8 % (11.6-14.6); RBC Distribution Width SD 49.1 fl (35.1-43.9); Red Blood Count 4.35 M/mm3 (4.2-5.4); White Blood Count 7.4 K/mm3 (4.4-11.0)
[2024-01-17 16:06] LABS: AST(SGOT) 12 U/L (15-37); Alanine Aminotransfer ALT/SGPT 15 U/L (13-56); Albumin, Serum 3.3 g/dL (3.2-5.0); Alkaline Phosphatase 88 U/L (45-117); Anion Gap 8 (5-15); BUN 6 mg/dL (7-18); BUN/Creat Ratio 6.6 RATIO (10-20); Calcium,Total 9.5 mg/dL (8.5-10.1); Chloride 94 mmol/L (98-107); Cholesterol 179 mg/dL (200); Creatinine, Serum 0.91 mg/dL (0.55-1.02); EST Glomerular Filtration Rate 63 mL/min (>60); Est Glom Filt Rate - Afr Amer 76 mL/min (>60); Globulin 3.4 g/dL (2.2-4.2); Glucose 103 mg/dL (74-106); High Density Lipoprotein 91 mg/dL; Potassium 4.4 mmol/L (3.5-5.1); Protein, Total 6.7 g/dL (6.4-8.2); Sodium Level 128 mmol/L (136-145); Thyroid Stim Hormone (TSH) 1.66 uIU/mL (0.358-3.74); Triglycerides 105 mg/dL; Very Low Density Lipoprotein 21 mg/dL (5-40)
== END | disposition home or self-care (01) ==
LOC: BFHLAB 13:14
PROVIDERS: PCP Family Medicine; Referring Provider Family Medicine; Visit Provider Family Medicine
DX: Z00.00 Encounter for general adult medical examination without abnormal findings (principal); I10 Essential (primary) hypertension; E87.6 Hypokalemia; M79.7 Fibromyalgia
CPT/HCPCS: 36415; 80053; 80061; 84443; 85025

== ENCOUNTER 2024-02-26 16:42 | Inpatient (IN) | payer MEDICARE, SELFPAY ==
[2024-02-26 16:42] VITALS: BP 170/68; PULSE 65; RESP 16; TEMP 36.5; O2SAT 98; BMI 31.7
--- NOTE | 2024-02-26 16:53 | CT_ITS ---
STUDY: CT LUMBAR SPINE WITHOUT CONTRAST REASON FOR EXAM: Female, 83 years old. trauma RADIATION DOSAGE (If Supplied By Facility): CTDIvol = ( 39.81 ) mGy, DLP = ( 1325.94 ) mGycm TECHNIQUE: The patient was scanned in a multi detector CT scanner. High resolution transaxial imaging was performed. Images were obtained from T12 to S1. Sagittal and coronal images were reconstructed. Individualized dose optimization techniques were used for this CT. COMPARISON: X-ray 01/28/2022 FINDINGS: Normal lumbar lordosis. Mild levoscoliosis centered at L2/L3. Normal vertebrae of the lumbar spine. L1-2: Moderate bilobed disc protrusion with vacuum disc formation produces moderate spinal stenosis and moderate bilateral neural foraminal stenosis. L2-3: Mild bilateral facet hypertrophy and severe ligament flavum hypertrophy. Moderate bilobed disc protrusion with vacuum disc formation produces moderate spinal stenosis, moderate right neural foraminal stenosis and mild left neural foraminal stenosis. L3-4: Mild bilateral facet hypertrophy and moderate ligament flavum hypertrophy. Large bilobed disc protrusion with vacuum disc formation produces severe spinal stenosis, severe right neural foraminal stenosis and moderate left neural foraminal stenosis. L4-5: Moderate bilateral facet hypertrophy and ligament flavum hypertrophy. 5 mm of anterolisthesis of L4 on L5 with a moderate sized central disc protrusion produces moderate spinal stenosis and moderate bilateral neural foraminal stenosis. L5-S1: Mild bilateral facet hypertrophy. Mild broad disc protrusion with vacuum disc formation produces mild spinal stenosis and mild bilateral neural foraminal stenosis. Normal visualized paraspinous soft tissue structures. CT/Spine Lumbar without Contrast IMPRESSION: No acute fracture or subluxation. Mild levoscoliosis with degenerative disc disease as described above. Electronically Signed: Tito Gutierrez MD at 18:19 EDT ,
--- NOTE | 2024-02-26 16:53 | CT_ITS ---
STUDY: CT THORACIC SPINE WITHOUT CONTRAST REASON FOR EXAM: Female, 83 years old. trauma RADIATION DOSAGE (If Supplied By Facility): CTDIvol = ( 22.30 ) mGy, DLP = ( 698.05 ) mGycm TECHNIQUE: The patient was scanned in a multi detector CT scanner. High resolution imaging was performed. Images were obtained from C7 to L1. Sagittal and coronal images were reconstructed. Individualized dose optimization techniques were used for this CT. COMPARISON: None. FINDINGS: Normal visualized cervical spine. Normal kyphosis of the thoracic spine. Mild S-shaped scoliosis with levoscoliosis of the upper thoracic spine and dextroscoliosis lower thoracic spine. Acute moderate wedge compression fracture of the T8 vertebral body with 2 mm retropulsion of the superior endplate into the spinal canal producing mild spinal stenosis. Normal disc spaces heights. The soft tissue structures are unremarkable. CT/Spine Thoracic without Contras IMPRESSION: Acute moderate compression fracture of T8 with 2 mm retropulsion into the spinal canal producing mild spinal stenosis. Electronically Signed: Tito Gutierrez MD at 18:26 EDT ,
--- NOTE | 2024-02-26 16:54 | CT_ITS ---
STUDY: CT BRAIN WITHOUT CONTRAST REASON FOR EXAM: Female, 83 years old. injury RADIATION DOSAGE (If Supplied By Facility): CTDIvol = ( 44.99 ) mGy, DLP = ( 796.11 ) mGycm TECHNIQUE: Transaxial CT imaging of the brain was performed without administration of intravenous contrast material. Individualized dose optimization techniques were used for this CT. COMPARISON: No relevant priors. FINDINGS: Normal soft tissue structures. Normal calvarium. There is mild cerebral atrophy with widening of the extra-axial spaces and ventricular dilatation. There are areas of decreased attenuation within the white matter tracts of the supratentorial brain, consistent with microvascular disease changes. Normal basal ganglia and thalami. Normal brainstem. Normal cerebellum. There is no intracranial hemorrhage. There are no findings of an acute ischemic infarction. Normal visualized paranasal sinuses. CT/Brain/Head without Contrast IMPRESSION: Chronic involutional changes of the brain. Electronically Signed: Tito Gutierrez MD at 17:38 EDT ,
[2024-02-26] MEDS: HYDROcodone Bitartrate/Apap 5/325 Tablet PO (17:03)
--- NOTE | 2024-02-26 17:03 | CT_ITS ---
STUDY: CT CERVICAL SPINE WITHOUT CONTRAST REASON FOR EXAM: Female, 83 years old. injury RADIATION DOSAGE (If Supplied By Facility): CTDIvol = ( 20.00 ) mGy, DLP = ( 363.39 ) mGycm TECHNIQUE: High resolution transaxial imaging was performed without contrast material. Sagittal and coronal images were reconstructed. Individualized dose optimization techniques were used for this CT. COMPARISON: None FINDINGS: Normal craniovertebral junction. There are degenerative changes of the anterior atlantoaxial articulation. Normal odontoid process. Normal cervical lordosis. Normal vertebral bodies and posterior osseous elements. C2-3: Mild right facet hypertrophy produces mild right neural foraminal stenosis. No central spinal stenosis. C3-4: Moderate left facet hypertrophy produces moderate left neural foraminal stenosis. 2 mm of anterolisthesis of C3 on C4 with no central spinal stenosis. C4-5: Moderate right facet hypertrophy produces moderate right neural foraminal stenosis. 5 mm of anterolisthesis of C4 on C5 with no central spinal stenosis. C5-6: Mild bilobed disc osteophyte complex and bilateral uncovertebral hypertrophy produces mild spinal stenosis and mild bilateral neural foraminal stenosis. C6-7: Mild broad disc osteophyte complex and bilateral uncovertebral hypertrophy produces mild spinal stenosis and mild bilateral neural foraminal stenosis. C7-T1: Normal endplates. Normal disc height and morphology. Normal central canal and intervertebral neuroforamina. Normal visualized soft tissue structures. CT/Spine Cervical without Contras IMPRESSION: No acute fracture or subluxation. Degenerative disc disease as described above. Electronically Signed: Tito Gutierrez MD at 18:10 EDT ,
--- NOTE | 2024-02-26 17:16 | EX.ED.GENINJ ---
HPI History of Present Illness Chief Complaint: Fall Informant: patient, family and EMS Narrative Narrative: 83-year-old female presenting to the emergency room with back pain following a fall. Patient states that she went out onto her deck was coming back into the house when she tripped and fell. She was not using her rollator or cane that she normally does. She is states that she landed in a sitting position. She notes pain in the mid back. It is worse with movement. She states that she did not lose consciousness or remember striking her head. She denies any leg symptoms. She has seen Dr. Crowell in the past for degenerative back disease and received injections. She has not had any injections for about 6 months. PFSH PFSH Home Medications ?Medication ?Instructions ?Recorded ?Last Taken ?Type NK 08/29/19 Unknown History Allergy/AdvReac Type Severity Reaction Status Date / Time No Known Allergies Allergy Unverified 08/29/19 12:56 Surgical History History of delivery Social History Smoking Status: Never smoker ROS ROS ED Constitutional Constitutional ED: Denies chills or weight loss Eyes Eyes: Denies change in vision or diplopia ENT ENT ED: Denies ear pain, rhinorrhea or sore throat Cardiovascular Cardiovascular: Denies chest pain, orthopnea, palpitations or racing heartbeat Respiratory/Chest Respiratory/Chest: Denies cough, dyspnea or orthopnea Gastrointestinal Gastrointestinal: Denies abdominal pain, diarrhea, nausea or vomiting Genitourinary Genitourinary ED: Denies dysuria, hematuria or urinary frequency Musculoskeletal Musculoskeletal: Reports back pain; Denies arthralgias or myalgias Integumentary Denies abscess or rash Neurologic Neurologic: Denies headache(s) or weakness Psychiatric Psychiatric: Denies anxiety, depression, suicidal ideation or suicidal thoughts Endocrine Endocrinology: Denies polydipsia, polyphagia or polyuria Allergic/Immunologic Allergic/Immunologic ED: Denies mouth swelling, tongue swelling or urticaria EXAM Physical Exam Const Vital Signs: 02/26/24 16:42 02/26/24 16:50 02/26/24 18:41 Temperature 97.7 F L Temperature Source Oral Pulse Rate 65 81 Respiratory Rate 16 16 Respiratory Effort Normal Non-Labored Respiratory Depth Normal Respiratory Pattern Normal Blood Pressure 170/68 H 154/66 H Blood Pressure Mean 102 95 Pulse Ox 98 98 Oxygen Delivery Method Room Air Room Air Room Air Positive well nourished and well developed General Appearance ED: well developed and NAD HEENT Reports normocephalic, head/scalp atraumatic and moist mucous membranes Eyes PERRL and EOMs intact bilaterally Neck no lymphadenopathy, supple and no JVD Chest Wall inspection of chest normal and palpation of chest normal Resp normal respiratory effort and clear to auscultation bilaterally Cardio regular rate, regular rhythm and no murmurs GI normal to inspection, nondistended, normoactive bowel sounds and non-tender Palpation: soft Back/Spine no CVA tenderness Back/Spine Narrative: Patient has painful range of motion with twisting and sitting forward in the bed. She reports tenderness to palpation from about T8-L2 in the midline. She denies any pain on palpation of the ribs posteriorly or anteriorly. She denies paraspinal musculature tenderness. Extremity normal to inspection and full ROM General Extremety ED: Negative for edema General Extremity: Negative for edema Neuro oriented x3, CN's II-XII intact bilaterally, moves all extremities, no focal motor deficits and no sensory deficits noted Sensorium / Orientation: alert Motor Exam: strength 5/5 throughout Psych mental status grossly normal Mood & Affect: Negative for depressed or tearful Skin no rashes or lesions noted and no wounds MDM MDM MDM Narrative Medical decision making narrative: Differential diagnosis includes but not limited to thoracic and lumbar compression fracture muscular strain intracranial hemorrhage/hematoma contusion acute disc herniation CT the brain demonstrates no acute findings. CT cervical spine no acute findings. CT of the thoracic spine demonstrates an acute T8 compression fracture with mild spinal stenosis from retropulsion fracture piece of about [address] of the lumbar spine demonstrated no acute findings. Patient received a [place] for pain. She has been resting more comfortably however with movement she has a significant increase in pain. Spoke with the patient and her family regarding the above findings. They are not comfortable with her going home for safety concerns. Family felt that when she got up to ambulate here in the department she was very unsteady. She does live alone. I will speak with the hospitalist regarding admission for PT OT eval. History & Record Review Discussion w/independent historian: Patient and Family Radiography Diagnostic Testing: Clinical Impression(s) from Imaging Studies Lumbar Spine CT 02/26/24 16:53 IMPRESSION: No acute fracture or subluxation. Mild levoscoliosis with degenerative disc disease as described above. Electronically Signed: Tito Gutierrez MD at 18:19 EDT Reading Location ID and State: [id number] / [employer] Tel , Service support , Thoracic Spine CT 02/26/24 16:53 IMPRESSION: Acute moderate compression fracture of T8 with 2 mm retropulsion into the spinal canal producing mild spinal stenosis. Electronically Signed: Tito Gutierrez MD at 18:26 EDT Reading Location ID and State: [id number] / [employer] , Service support , Brain CT 02/26/24 16:54 IMPRESSION: Chronic involutional changes of the brain. Electronically Signed: Tito Gutierrez MD at 17:38 EDT Reading Location ID and State: [id number] / [employer] , Service support , Cervical Spine CT 02/26/24 17:03 IMPRESSION: No acute fracture or subluxation. Degenerative disc disease as described above. Electronically Signed: Tito Gutierrez MD at 18:10 EDT Reading Location ID and State: [id number] / [employer] , Service support , Management Discussion w/another healthcare provider: Hospitalist Discharge Plan Dx/Rx/DC Orders Clinical Impression: Compression fracture of T8 vertebra, Fall Disposition Disposition: Acute Care Hospital [facility]
[2024-02-26 18:41] VITALS: BP 154/66; PULSE 81; RESP 16; O2SAT 98
[2024-02-26 20:00] VITALS: BP 168/71; PULSE 72; RESP 12; O2SAT 98
[2024-02-26 20:11] VITALS: BP 168/71; PULSE 86; RESP 16; TEMP 36.8; O2SAT 96
[2024-02-26 20:14] LABS: Absolute Lymphocyte Count 1.49 X10^3/uL (0.83-4.51); Absolute Neutrophil Count 16.3 X10^3/uL (2.0-7.7); Basophil# 0.06 X10^3/uL; Basophil% 0.3 % (0-1); Eosinophil# 0.03 X10^3/uL; Eosinophils% 0.2 % (0-5); Hematocrit 42.6 % (37-47); Hemoglobin 14.8 g/dL (12.0-15.0); Lymphocyte # 1.49 X10^3/ul (0.83-4.51); Lymphocyte % 7.7 % (19-41); Mean Corp Hgb Conc 34.7 g/dL (32-36); Mean Corpuscular Hgb 34.6 pg (27.0-32.0); Mean Corpuscular Volume 99.5 fL (81-99); Mean Platelet Vol. 8.8 fl (6.2-12.0); Monocyte# 1.32 X10^3/uL; Monocyte% 6.8 % (0-10); NRBC Flagged by Analyzer 0 % (0-5); Neutrophil # 16.31 X10^3/uL (2.7-7.7); Neutrophil % 84.4 % (47-70); Platelet Count 247 K/mm3 (150-450); RBC Distribution Width CV 11.9 % (11.6-14.6); RBC Distribution Width SD 43.3 fl (35.1-43.9); Red Blood Count 4.28 M/mm3 (4.2-5.4); White Blood Count 19.3 K/mm3 (4.4-11.0)
[2024-02-26 20:28] LABS: Anion Gap 6 (5-15); BUN 8 mg/dL (7-18); BUN/Creat Ratio 9.4 RATIO (10-20); Chloride 93 mmol/L (98-107); Creatinine, Serum 0.86 mg/dL (0.55-1.02); EST Glomerular Filtration Rate 67 mL/min (>60); Est Glom Filt Rate - Afr Amer 81 mL/min (>60); Estimated Creatinine Clearance 47.34 ml/min; Glucose 119 mg/dL (74-106); Potassium 4.1 mmol/L (3.5-5.1); Sodium Level 129 mmol/L (136-145)
--- NOTE | 2024-02-26 20:33 | HP.PCM.HOS_ITS ---
HPI - General General Date of Admission: 02/26/24 Date of Service: 02/26/24 Chief Complaint: Fall, back pain, weakness/debility. HPI Narrative The patient is an 83 y/o F w/ PMHx: Chronic hyponatremia, Obesity, EtOH abuse (~ 2 smirnoff drinks at least daily, history of family EtOH abuse), HTN, Knee OA with recent steroid injection the day prior to presentation, Allergic rhinitis, Fibromyalgia, GERD w/ hiatal hernia, Sjogren's syndrome, Chronic back pain following w/ Dr. Crowell with most recent infection ~ 6 months prior, Chronic OA with recent knee injection the day prior to presentation who presents to the [facility] ED on 02/26/24 with mechanical fall reportedly going out onto her deck, she was coming back into the house she tripped and fell unfortunately not using a rollator or cane at that time which she is supposed to landing in a sitting position with immediate pain to the mid back region which was worse with movement with no loss of consciousness nor any memory of striking her head with no specific lower extremity paresthesias, loss of bowel or bladder or perineal paresthesias with ability to move but difficulty given severity of pain prompting ED evaluation to be cautious. In the ED upon evaluation she notes aching thoracic discomfort worse with any activity attempts but more so she states when she is up and attempting to move she feels severely weak as if she is going to fall again. Workup in the ED included T97.7, heart rate 65, BP 170/68, respiratory rate 16, 98% on room air, CBC with WC 19.3, human 14.8, platelet 247 with left shift, BMP with sodium 129, chloride 93, glucose 119 otherwise not marked appearing, CT of the brain with chronic involutional changes, CT cervical spine with no acute fracture or subluxation with degenerative disc disease, thoracic spine CT with acute moderate compression fracture T8 with 2 mm retropulsion of the spinal canal producing mild spinal canal stenosis, lumbar spine CT with no acute fracture or subluxation with mild levoscoliosis degenerative disc disease. In the ED patient administered hydrocodone 1 tablet p.o. x 1. [facility] Medical History (Updated 02/26/24 @ 21:[address] Nishi Velásquez MD) Obesity Allergic rhinitis GERD (gastroesophageal reflux disease) Sjogrens syndrome Fibromyalgia HTN (hypertension) Home Medications ?Medication ?Instructions ?Recorded ?Last Taken ?Type acetaminophen 300 mg-codeine 30 mg 1 tab PO Q6H PRN PRN right knee 02/26/24 Unknown History tablet pain atenolol 25 mg tablet 12.5 mg PO DAILY 02/26/24 Unknown History cholecalciferol (vitamin D3) 1 tab PO DAILY 02/26/24 Unknown History famotidine 20 mg tablet (Acid 20 mg PO DAILY 02/26/24 Unknown History Controller) flaxseed oil PO DAILY 02/26/24 Unknown History furosemide 20 mg tablet 20 - 40 mg PO DAILY PRN swelling 02/26/24 Unknown History loratadine 10 mg tablet 10 mg PO DAILY 02/26/24 Unknown History (Allerclear) potassium chloride 20 mEq 20 meq PO DAILY 02/26/24 Unknown History tablet,extended release(part/cryst) spironolactone 25 mg tablet 25 mg PO DAILY 02/26/24 Unknown History Allergy/AdvReac Type Severity Reaction Status Date / Time No Known Allergies Allergy Unverified 08/29/19 12:56 Family History (Updated 02/26/24 @ 21:[address] Nishi Velásquez MD) Mother CVA (cerebral vascular accident) Hypertension Father Heart disease CAD (coronary artery disease) Myocardial infarction Hypertension Alcohol abuse Surgical History (Updated 02/26/24 @ 21:[address] Nishi Velásquez MD) History of tonsillectomy and adenoidectomy History of delivery Social History (Updated 02/26/24 @ 21:[address] Nishi Velásquez MD) household members: none Smoking Status: Never smoker alcohol intake: current alcohol intake frequency: 0-2 drinks per day Alcohol type: hard liquor details: Notes usually 2 (family reports likely more) smirnoff drinks daily. substance use type: does not use ROS ROS Narrative Admission Review of Systems: CONSTITUTIONAL: No weight loss, fever, chills, + weakness or fatigue. HEENT: Eyes: No visual loss, blurred vision, double vision or yellow sclerae. Ears, Nose, Throat: No hearing loss, sneezing, congestion, runny nose or sore throat. SKIN: No rash or itching, lesions, wounds except + stage ecchymoses, abrasions. CARDIOVASCULAR: No chest pain, chest pressure or chest discomfort, palpitations, edema, orthopnea, syncopal events. RESPIRATORY: No shortness of breath, cough or sputum, wheezing, hemoptysis. GASTROINTESTINAL: No anorexia, nausea, vomiting or diarrhea, abdominal pain, melena, BRBPR. GENITOURINARY: No dysuria, frequency, urgency or retention. NEUROLOGICAL: + Debility/weakness status post recent fall, imbalance. No headache, dizziness, syncope, paralysis, ataxia, numbness or tingling in the extremities, focal weakness, change in bowel or bladder control, seizure. MUSCULOSKELETAL: +. Muscle, back pain, joint pain or stiffness. HEMATOLOGIC: No anemia. + Easy bleeding/bruising. LYMPHATICS: No enlarged nodes. No history of splenectomy. PSYCHIATRIC: No history of depression or anxiety. ENDOCRINOLOGIC: No reports of sweating, cold or heat intolerance. No polyuria or polydipsia. ALLERGIES: + History of allergic rhinitis. Vital Signs Vital Signs Vital Signs: 02/26/24 16:42 02/26/24 16:50 02/26/24 18:41 Temperature 97.7 F L Temperature Source Oral Pulse Rate 65 81 Respiratory Rate 16 16 Respiratory Effort Normal Non-Labored Respiratory Depth Normal Respiratory Pattern Normal Blood Pressure 170/68 H 154/66 H Blood Pressure Mean 102 95 Pulse Ox 98 98 Oxygen Delivery Method Room Air Room Air Room Air 02/26/24 20:00 02/26/24 20:11 Temperature 98.2 F Temperature Source Pulse Rate 72 86 Respiratory Rate 12 16 Respiratory Effort Respiratory Depth Respiratory Pattern Blood Pressure 168/71 H 168/71 H Blood Pressure Mean 103 103 Pulse Ox 98 96 Oxygen Delivery Method Room Air Weight Weight: 173 lb 11.588 oz Body Mass Index (BMI) 31.7 Physical Exam Narrative Physical Examination: General: Awake, alert, oriented x 3 and cooperative, seated upright in the ED, fatigued, mildly uncomfortable appearing especially with movement attempts. Skin: Normal color, normal turgor, no icterus, no cyanosis except for occasional stage ecchymoses, abrasion status post recent fall HEENT: AT/NC, EOMI, PERRLA, mildly dry MM, no carotid bruits or JVD noted. Lungs: Mildly diminished, greater bases, appropriate effort, no rales, ronchi or wheezing. Heart: Regular rate and rhythm; no gallop, rub audible. Abdomen: Soft, obese, NTTP, ND, distant normal BS, no appreciated HSM. Extremities: No cyanosis, no clubbing, no marked peripheral edema, notable difficulty with sitting and moving in the bed with tenderness to palpation at the T8 to upper lumbar region midline with no step-off no specific paresthesias. Neurological: Patient awake, alert, oriented as noted, cognitive function intact; pupils equally reactive to light and accommodation, cranial nerves grossly normal, moving all 4 extremities but very limited as it causes thoracic and lumbar pain with movement, no focal deficits, strength severely globally decreased secondary to acute presentation complaints Psychiatric: Affect appears fatigued, uncomfortable, no acute evidence of depressive or anxiety feelings. Results Lab / Micro Data 02/26/24 20:00 02/26/24 20:00 Labs: Laboratory Results - last 24 hr 02/26/24 20:00: WBC 19.3 H, RBC 4.28, Hgb 14.8, Hct 42.6, MCV 99.5 H, MCH 34.6 H , MCHC 34.7, RDW Std Deviation 43.3, RDW Coeff of [place] 11.9, Plt Count 247, MPV 8.8, Immature Gran % (Auto) 0.600, Neut % (Auto) 84.4 H, Lymph % (Auto) 7.7 L, [place] % (Auto) 6.8, Eos % (Auto) 0.2, Baso % (Auto) 0.3, Absolute Neuts (auto) 16.3 H, Absolute Lymphs (auto) 1.49, Nucleated RBC % 0, Sodium 129 L, Potassium 4.1, Chloride 93 L, Carbon Dioxide 30.0, Anion Gap 6, BUN 8, Creatinine 0.86, Estim Creat Clear Calc 47.34, Est GFR (MDRD) Af Amer 81, Est GFR (MDRD) Non-Af 67, BUN/Creatinine Ratio 9.4 L, Glucose 119 H, Calcium 9.0 Imaging Radiology Impression Lumbar Spine CT 02/26/24 16:53 IMPRESSION: No acute fracture or subluxation. Mild levoscoliosis with degenerative disc disease as described above. Electronically Signed: Tito Gutierrez MD at 18:19 EDT , Thoracic Spine CT 02/26/24 16:53 IMPRESSION: Acute moderate compression fracture of T8 with 2 mm retropulsion into the spinal canal producing mild spinal stenosis. Electronically Signed: iTto Gutierrez MD at 18:26 EDT , Brain CT 02/26/24 16:54 IMPRESSION: Chronic involutional changes of the brain. Electronically Signed: Tito Gutierrez MD at 17:38 EDT , Cervical Spine CT 02/26/24 17:03 IMPRESSION: No acute fracture or subluxation. Degenerative disc disease as described above. Electronically Signed: Tito Gutierrez MD at 18:10 EDT , Assessment & Plan Assessment/Plan (1) Compression fracture of T8 vertebra: (2) Fall: PLAN: Plan The patient is an 83 y/o F w/ PMHx: Chronic hyponatremia, Obesity, EtOH abuse (~ 2 smirnoff drinks at least daily, history of family EtOH abuse), HTN, Knee OA with recent steroid injection the day prior to presentation, Allergic rhinitis, Fibromyalgia, GERD w/ hiatal hernia, Sjogren's syndrome, Chronic back pain following w/ Dr. Crowell with most recent infection ~ 6 months prior, Chronic OA with recent knee injection the day prior to presentation who presents to the [facility] ED on 02/26/24 with mechanical fall reportedly going out onto her deck, she was coming back into the house she tripped and fell unfortunately not using a rollator or cane at that time which she is supposed to landing in a sitting position with immediate pain to the mid back region which was worse with movement with no loss of consciousness nor any memory of striking her head with no specific lower extremity paresthesias, loss of bowel or bladder or perineal paresthesias with ability to move but difficulty given severity of pain prompting ED evaluation. #1. Acute Intractable Back Pain secondary to mechanical fall with Acute moderate compression fracture T8 with 2 mm retropulsion with mild spinal canal stenosis resulting: Will admit to [facility], maintain on fall precautions, frequent positioning, initiate lidocaine patches, low dose gabapentin, kpad, low dose toradol as needed, po/IV narcotic pain regimen, anti-emetics, bowel regimen. Will consult PT and OT for evaluation as well as Case management for discharge planning. Given findings will also request Dr. Wood evaluation as patient already having osteoarthritic knee pain s/p recent infection and has been following with pain management for back pain with injections most recently 6 months prior already in case of intervention needs. #2. Leukocytosis, suspect secondary to recent steroid injection: Admission CBC with WC 19.3, left shift, no obvious source of any infection and patient with recent injection to the knee the day prior to current presentation, will continue to trend CBC to be cautious, procalcitonin requested, UA requested. #3. EtOH Abuse: Patient notes routine consumption of ~ 2 smirnoff drinks per day. Will maintain on CIWA protocol, MVI, thiamine and folic acid. Encouraged avoidance of in excess versus sobriety. Discussed with family and they note family history in her father of EtOh abuse. EtOH level requested. Mag and phos requested. Hepatic profile requested. #4. Chronic Hyponatremia: Admission sodium 129, chloride 93, likely associate with alcohol consumption but also physiological changes with advancing age, potential component of mild dehydration, will judiciously hydrate and repeat CMP in AM. #5. Hypertension: Continue home regimen including spironolactone, atenolol, cautiously Lasix however if repeat CMP in a.m. with more pronounced hyponatremia would plan to hold at that time, PRN hydralazine. #6. Chronic back pain: Patient with already ongoing chronic debility, receives injections with pain management, last back injection approximately 6 months prior. #7. GERD: We will continue patient home famotidine regimen, as needed Mylanta will be available also allergic rhinitis: We will continue patient on loratadine regimen. #8. Obesity: Weight loss and lifestyle changes encouraged. #9. DVT prophylaxis: SCDs, hold on chemoprophylaxis pending orthopedic spine surgery evaluation. #10. CODE status: Patient notes that her medical decision makers are her son and daughter who are present. Discussed CODE status at length including difference between FULL code, DNR-CCA and DNR-CC status. Following discussions about the differences in these status, requested Full Code status. Given patient concerns did discuss when healthcare power of compliance attorney/living will interventions, and to play following which she felt relieved this patient was concerned that if she is injured/cardiopulmonary arrest she does not want to remain on a prolonged ventilator. Advanced Care Planning Face to Face Time: 16 minutes. Charges/Coding Visit Charges Inpatient E&M: 17413 Init Hosp L3 Procedures Hospitalists Procedures: 98136 Advncd Care Plan 30 Min
[2024-02-26 21:20] LABS: Magnesium 1.7 mg/dL (1.6-2.6); Phosphorus 2.9 mg/dL (2.5-4.9)
[2024-02-26 21:27] VITALS: BMI 31.6
[2024-02-26 21:39] LABS: AST(SGOT) 14 U/L (15-37); Alanine Aminotransfer ALT/SGPT 17 U/L (13-56); Albumin, Serum 3.2 g/dL (3.2-5.0); Alkaline Phosphatase 70 U/L (45-117); Bilirubin, Direct 0.47 mg/dL (0.00-0.30); Globulin 2.9 g/dL (2.2-4.2); Protein, Total 6.1 g/dL (6.4-8.2)
[2024-02-26 21:41] LABS: Alcohol, Blood (Medical)-Serum < 3.0 mg/dL
[2024-02-26 22:09] LABS: Procalcitonin < 0.04 ng/mL (0.00-0.09)
[2024-02-26 22:13] VITALS: BP 154/69; PULSE 65; RESP 18; TEMP 36.7; O2SAT 96
[2024-02-26] MEDS: 0.9% Normal Saline (1000mL) 1,000 ML 100 ML IV (22:19)
[2024-02-26] MEDS: Gabapentin 100 MG Capsule PO (22:19)
[2024-02-26] MEDS: Acetaminophen 325 MG Tablet 650 MG PO (22:19)
[2024-02-26] MEDS: 0.9% Saline Lock 10 ML Syringe IV (22:22)
[2024-02-26 22:23] VITALS: O2SAT 96
[2024-02-26] MEDS: oxyCODONE 5 MG Tablet 2.5 MG PO (23:26)
[2024-02-27 05:07] VITALS: BP 179/80; PULSE 65; RESP 16; TEMP 36.6; O2SAT 98
[2024-02-27] MEDS: Acetaminophen 325 MG Tablet 650 MG PO (05:15)
[2024-02-27 05:19] VITALS: PULSE 69
[2024-02-27] MEDS: hydrALAZINE 20 MG/ML Vial 10 MG IV (05:19)
[2024-02-27 06:00] VITALS: BMI 31.6
[2024-02-27 06:00] LABS: Absolute Neutrophil Count 10.1 X10^3/uL (2.0-7.7); Basophil# 0.04 X10^3/uL; Basophil% 0.3 % (0-1); Eosinophil# 0.08 X10^3/uL; Eosinophils% 0.7 % (0-5); Hematocrit 37.4 % (37-47); Hemoglobin 12.8 g/dL (12.0-15.0); Lymphocyte % 7.4 % (19-41); Mean Corp Hgb Conc 34.2 g/dL (32-36); Mean Corpuscular Hgb 34.8 pg (27.0-32.0); Mean Corpuscular Volume 101.6 fL (81-99); Mean Platelet Vol. 9.4 fl (6.2-12.0); Monocyte# 0.95 X10^3/uL; Monocyte% 7.8 % (0-10); NRBC Flagged by Analyzer 0 % (0-5); Neutrophil # 10.11 X10^3/uL (2.7-7.7); Neutrophil % 82.9 % (47-70); Platelet Count 225 K/mm3 (150-450); RBC Distribution Width SD 44.9 fl (35.1-43.9); Red Blood Count 3.68 M/mm3 (4.2-5.4); White Blood Count 12.2 K/mm3 (4.4-11.0)
[2024-02-27 06:29] LABS: Mucous, Urine 0 SEEN /hpf (<or=2+)
[2024-02-27 06:30] LABS: Color, Urine Yellow (Yellow); Glucose, Dipstick Normal (Normal); Ketone-Dipstick Negative (Negative); Leukocyte Esterase-Dipstick 500 /ul (Negative); Nitrite-Dipstick Negative (Negative); Occult Blood-Urine 25 /ul (Negative); Protein-Dipstick 15 mg/dl (Negative); Urine Bilirubin Dipstick Negative (Negative); Urine Clarity Cloudy (Clear); Urine Urobilinogen Normal (Normal)
[2024-02-27 06:36] LABS: White Blood Cells 50-100 SEEN /hpf (0-5)
[2024-02-27 06:37] LABS: Bacteria 1+ /hpf (None Seen); Red Blood Cells-Urine 5-10 SEEN /hpf (0-5); Squamous Epithelial Cells - UA 5-10 SEEN /hpf (5-10)
[2024-02-27 07:28] VITALS: O2SAT 95
[2024-02-27] MEDS: Gabapentin 100 MG Capsule PO ×2 (08:02→17:36)
[2024-02-27] MEDS: oxyCODONE 5 MG Tablet 2.5 MG PO (08:02)
[2024-02-27] MEDS: Folic Acid 1 MG Tablet PO (08:03)
[2024-02-27] MEDS: Multivitamins,Ther W-Minerals Tablet 1 TABLET PO (08:03)
[2024-02-27] MEDS: Thiamine Hydrochloride 100 MG Tablet PO (08:03)
[2024-02-27] MEDS: Potassium Chloride Oral Tablet 20 MEQ PO (08:04)
[2024-02-27] MEDS: Spironolactone 25 MG Tablet PO (08:04)
[2024-02-27] MEDS: Loratadine 10 MG Tablet PO (08:04)
[2024-02-27] MEDS: Furosemide 20 MG Tablet PO (08:05)
[2024-02-27] MEDS: Famotidine 20 MG Tablet PO (08:05)
[2024-02-27] MEDS: Lidocaine 5% Patch 2 PATCH TOPICAL (08:05)
[2024-02-27 08:20] LABS: AST(SGOT) 16 U/L (15-37); Alanine Aminotransfer ALT/SGPT 14 U/L (13-56); Albumin, Serum 2.7 g/dL (3.2-5.0); Alkaline Phosphatase 64 U/L (45-117); Anion Gap 5 (5-15); BUN 8 mg/dL (7-18); Calcium,Total 8.3 mg/dL (8.5-10.1); Chloride 95 mmol/L (98-107); Creatinine, Serum 0.73 mg/dL (0.55-1.02); EST Glomerular Filtration Rate 81 mL/min (>60); Est Glom Filt Rate - Afr Amer 98 mL/min (>60); Estimated Creatinine Clearance 48.86 ml/min; Globulin 2.8 g/dL (2.2-4.2); Glucose 106 mg/dL (74-106); Potassium 4.5 mmol/L (3.5-5.1); Protein, Total 5.5 g/dL (6.4-8.2); Sodium Level 127 mmol/L (136-145)
[2024-02-27 09:11] VITALS: BP 142/70; PULSE 79; RESP 18; TEMP 36.7; O2SAT 98
--- NOTE | 2024-02-27 09:53 | PN_ITS ---
Subjective Subjective Patient seen and examined. She was admitted with a complaint of mechanical fall with resultant thoracic compression fracture. She feels better today. Pain is better controlled. Review of systems otherwise negative. She has no other complaints. She has remained hemodynamically stable and pain is well- controlled. Objective Data Objective Data Vital Signs: Vital Signs Temp Pulse Resp BP Pulse Ox O2 Del Method 98.1 F 79 18 142/70 H 98 Room Air 02/27/24 09:11 02/27/24 09:11 02/27/24 09:11 02/27/24 09:11 02/27/24 09:11 02/27/24 09:11 Oxygen Delivery Method Room Air Weight: 167 lb 12.348 oz Body Mass Index (BMI) 31.6 Intake & Output: Intake and Output for Last 24 Hours 02/25/24 02/26/24 02/27/24 23:59 23:59 23:59 Intake Total 400 / 400 Balance 400 / 400 Lab / Micro Data 02/27/24 04:20 02/27/24 04:20 Labs: Laboratory Results - last 24 hr 02/26/24 20:00: WBC 19.3 H, RBC 4.28, Hgb 14.8, Hct 42.6, MCV 99.5 H, MCH 34.6 H , MCHC 34.7, RDW Std Deviation 43.3, RDW Coeff of Chavo 11.9, Plt Count 247, MPV 8.8, Immature Gran % (Auto) 0.600, Neut % (Auto) 84.4 H, Lymph % (Auto) 7.7 L, Hyde % (Auto) 6.8, Eos % (Auto) 0.2, Baso % (Auto) 0.3, Absolute Neuts (auto) 16.3 H, Absolute Lymphs (auto) 1.49, Nucleated RBC % 0, Sodium 129 L, Potassium 4.1, Chloride 93 L, Carbon Dioxide 30.0, Anion Gap 6, BUN 8, Creatinine 0.86, Estim Creat Clear Calc 47.34, Est GFR (MDRD) Af Amer 81, Est GFR (MDRD) Non-Af 67, BUN/Creatinine Ratio 9.4 L, Glucose 119 H, Calcium 9.0 02/26/24 20:58: Phosphorus 2.9, Magnesium 1.7, Total Bilirubin 1.80 H, Direct Bilirubin 0.47 H, AST 14 L, ALT 17, Alkaline Phosphatase 70, Total Protein 6.1 L , Albumin 3.2, Globulin 2.9, Procalcitonin < 0.04, Ethyl Alcohol < 3.0 02/27/24 04:20: WBC 12.2 H, RBC 3.68 L, Hgb 12.8, Hct 37.4, MCV 101.6 H, MCH 34.8 H, MCHC 34.2, RDW Std Deviation 44.9 H, RDW Coeff of Chavo 12.0, Plt Count 225, MPV 9.4, Immature Gran % (Auto) 0.900, Neut % (Auto) 82.9 H, Lymph % (Auto) 7.4 L, Hyde % (Auto) 7.8, Eos % (Auto) 0.7, Baso % (Auto) 0.3, Absolute Neuts (auto) 10.1 H, Absolute Lymphs (auto) 0.90, Nucleated RBC % 0, Sodium 127 L, Potassium 4.5, Chloride 95 L, Carbon Dioxide 27.0, Anion Gap 5, BUN 8, Creatinine 0.73, Estim Creat Clear Calc 48.86, Est GFR (MDRD) Af Amer 98, Est GFR (MDRD) Non-Af 81, BUN/Creatinine Ratio 11.0, Glucose 106, Calcium 8.3 L, T otal Bilirubin 1.80 H, AST 16, ALT 14, Alkaline Phosphatase 64, Total Protein 5.5 L, Albumin 2.7 L, Globulin 2.8, Albumin/Globulin Ratio 1.0 02/27/24 04:55: Urine Color Yellow, Urine Clarity Cloudy, Urine pH 8.0, Ur Specific Wilmore 1.010, Urine Protein 15 H, Urine Glucose (UA) Normal, Urine Ketones Negative, Urine Occult Blood 25 H, Urine Nitrite Negative, Urine Bilirubin Negative, Urine Urobilinogen Normal, Ur Leukocyte Esterase 500 H, Urine RBC 5-10 SEEN, Urine WBC 50-100 SEEN, Ur Squamous Epith Cells 5-10 SEEN, Urine Bacteria 1+, Urine Mucus 0 SEEN Radiography Diagnostic Testing: Radiology Impression Lumbar Spine CT 02/26/24 16:53 IMPRESSION: No acute fracture or subluxation. Mild levoscoliosis with degenerative disc disease as described above. Electronically Signed: Tito Gutierrez MD at 18:19 EDT Reading Location ID and State: [id number] / [employer] , Service support , Thoracic Spine CT 02/26/24 16:53 IMPRESSION: Acute moderate compression fracture of T8 with 2 mm retropulsion into the spinal canal producing mild spinal stenosis. Electronically Signed: Tito Gutierrez MD at 18:26 EDT Reading Location ID and State: [id number] / [employer] , Service support , Brain CT 02/26/24 16:54 IMPRESSION: Chronic involutional changes of the brain. Electronically Signed: Tito Gutierrez MD at 17:38 EDT Reading Location ID and State: [place] [employer] , Service support , Cervical Spine CT 02/26/24 17:03 IMPRESSION: No acute fracture or subluxation. Degenerative disc disease as described above. Electronically Signed: Tito Gutierrez MD at 18:10 EDT Reading Location ID and State: [id number] / [employer] , Service support , Physical Exam Const alert, oriented x3, no apparent distress and well nourished General Appearance: cooperative and well developed HEENT normocephalic, head/scalp atraumatic, moist oral mucous membranes and oropharynx normal Eyes PERRL and EOMs intact bilaterally Neck no lymphadenopathy Lymph Lymphatic: no lymphadenopathy noted Resp normal respiratory effort, normal air movement and clear to auscultation bilaterally Cardio regular rate, regular rhythm, S1 normal heart sound and S2 normal heart sound GI normal to inspection, nondistended, normoactive bowel sounds, soft to palpation, non-tender and non-distended Extremity normal capillary refill, no clubbing, cyanosis or edema and no calf tenderness Skin General Skin Exam: no breakdown Neuro CN's II-XII intact bilaterally, no focal motor deficits, no sensory deficits noted and deep tendon reflexes 2+ bilaterally Motor Exam: strength 5/5 throughout and general weakness Psych thought process normal and cooperative Appearance: appropriate Assessment & Plan Assessment/Plan (1) Compression fracture of T8 vertebra: (2) Fall: PLAN: Plan #T8 compression fracture due to mechanical fall * PT OT on board. On p.o. Tylenol, oxycodone and IV morphine as needed for pain * She does follow with pain management on outpatient basis * Fall precautions. * Lidocaine patch in place * Orthopedic surgery was consulted. * MRI of the thoracic spine ordered. #Debility due to mechanical fall and resultant compression fracture: As above #History of alcohol abuse: Usually drinks 2 Smirnoff drinks daily. On CIWA protocol as a precaution. No signs of withdrawal. #Hypertension: On spironolactone and atenolol. IV hydralazine as needed #GERD: On famotidine #Obesity: BMI is 31.7. Complicates acute care, expected recovery and prognosis. DVT prophylaxis: SCds. Charges/Coding Visit Charges Inpatient E&M: 93561 Subs Hosp L2
[2024-02-27] MEDS: Acetaminophen 500 MG Tablet 1000 MG PO ×2 (14:35→20:53)
[2024-02-27 15:00] VITALS: BP 138/68; PULSE 78; RESP 18; TEMP 36.9; O2SAT 97
[2024-02-27 20:03] VITALS: BP 122/73; PULSE 77; RESP 16; TEMP 36.7; O2SAT 96
[2024-02-27] MEDS: Atenolol 25 MG Tablet 12.5 MG PO (20:54)
[2024-02-28] MEDS: oxyCODONE 5 MG Tablet 2.5 MG PO ×3 (01:06→20:59)
[2024-02-28 02:15] VITALS: BP 156/74; PULSE 63; RESP 16; TEMP 36.7; O2SAT 96
[2024-02-28 05:00] VITALS: BMI 32.3
[2024-02-28] MEDS: Acetaminophen 500 MG Tablet 1000 MG PO ×3 (05:35→20:58)
[2024-02-28 07:25] VITALS: O2SAT 94
[2024-02-28] MEDS: Gabapentin 100 MG Capsule PO ×2 (09:05→17:09)
[2024-02-28] MEDS: Loratadine 10 MG Tablet PO (09:05)
[2024-02-28] MEDS: Thiamine Hydrochloride 100 MG Tablet PO (09:06)
[2024-02-28] MEDS: Folic Acid 1 MG Tablet PO (09:06)
[2024-02-28] MEDS: Famotidine 20 MG Tablet PO (09:06)
[2024-02-28] MEDS: Multivitamins,Ther W-Minerals Tablet 1 TABLET PO (09:06)
[2024-02-28] MEDS: Lidocaine 5% Patch 1 PATCH TOPICAL (09:06)
[2024-02-28] MEDS: Spironolactone 25 MG Tablet PO (09:07)
[2024-02-28] MEDS: Potassium Chloride Oral Tablet 20 MEQ PO (09:07)
[2024-02-28] MEDS: Furosemide 20 MG Tablet PO (09:07)
[2024-02-28 09:26] VITALS: BP 172/73; PULSE 68; RESP 16; TEMP 36.4; O2SAT 98
--- NOTE | 2024-02-28 10:00 | MRI_ITS ---
STUDY: MRI THORACIC SPINE WITHOUT CONTRAST REASON FOR EXAM: Female, 83 years old. T8 comp fx TECHNIQUE: Standardized fat and water weighted pulse sequences were obtained in the sagittal and axial planes. COMPARISON: None. FINDINGS: Normal kyphosis of the thoracic spine. There is no substantial scoliosis. There is mild loss of height and marrow edema of the T7 vertebral body consistent with an acute mild compression fracture. No retropulsion into the spinal canal. Chronic severe compression fractures of the T8 vertebral body with 2 mm retropulsion of the superior endplate in the spinal canal and focal kyphosis producing mild spinal stenosis. T1-2, T2-3, T3-4, T4-5, T5-6, T6-7, T7-8, T8-9, T9-10, T10-11, T11-12: At T6/T7, there is a small central disc protrusion which produces mild spinal stenosis but no neural foraminal stenosis. At T7/T8, there is a moderate-sized central disc protrusion which produces moderate spinal stenosis with abutment of the central spinal cord. Normal visualized thoracic cord. Normal conus medullaris that terminates at the L1.. The soft tissue structures are unremarkable. MRI/Spine Thoracic (Routine) IMPRESSION: Acute mild compression fracture of T7 without retropulsion into the spinal canal. Chronic severe compression fracture of T8 with 2 mm retropulsion of the superior endplate in the spinal canal and with a central disc protrusion and focal kyphosis producing moderate spinal stenosis with abutment of the central spinal cord. Electronically Signed: Tito Gutierrez MD at 11:56 EDT ,
--- NOTE | 2024-02-28 10:31 | CASEMGMT ---
Discharge Planning A list of?SNF providers including quality and resource use data and consistent with the patient's preferred geographic region, medical needs, and insurance network was created in CarePort Guide.? This list was provided to the SW. Brenda Henning Discharge Planning Asst.
--- NOTE | 2024-02-28 10:51 | PN.HOSP_ITS ---
Reason for Visit Reason for Visit: Diagnoses Wedge compression fracture of T7-T8 vertebra, initial encounter for closed fracture (02/26/24) Unspecified fall, initial encounter (02/26/24) Subjective Subjective Patient was down having her MRI T-spine done this morning. Saw patient at bedside this afternoon, son present. Patient was sitting up fairly comfortably in bedside chair, conversing normally, in no acute distress. Dr. Wood with orthopedics had just been in to see them and noted that she would not need any surgical management during this hospitalization. His recommendation was for therapy here and at skilled rehab on discharge, with outpatient follow-up with him afterwards for possible cement augmentation. Patient states currently that her pain does feel somewhat improved from yesterday and this morning. She does continue to report pain with movement and certain motions of the back. I discussed with her and son about consideration of having pain management see her for possible injection while here, and they wanted to see how she does on her current pain medications and with therapy tomorrow and if there is no significant improvement, could consider this option. No other acute concerns at this time. Objective Data Objective Data Vital Signs: Vital Signs Temp Pulse Resp BP Pulse Ox O2 Del Method 97.6 F L 68 16 172/73 H 98 Room Air 02/28/24 09:26 02/28/24 09:26 02/28/24 09:26 02/28/24 09:26 02/28/24 09:26 02/28/24 09:27 Oxygen Delivery Method Room Air Weight: 77.7 kg Body Mass Index (BMI) 32.3 Intake & Output: Intake and Output for Last 24 Hours 02/26/24 02/27/24 02/28/24 23:59 23:59 23:59 Intake Total 2000 / 2300 500 / 500 Output Total 350 / 350 Balance 1650 / 1950 500 / 500 Lab / Micro Data 02/27/24 04:20 02/27/24 04:20 Physical Exam Const alert, oriented x3 and no apparent distress Constitutional Narrative: Pleasant elderly female, obese, sitting up comfortably in bed, conversing normally, in no acute distress. General Appearance: cooperative and comfortable HEENT normocephalic, head/scalp atraumatic, hearing grossly normal bilaterally, nasal mucous membranes and turbinates normal and moist oral mucous membranes Eyes PERRL, EOMs intact bilaterally and conjunctivae normal Neck full ROM Chest inspection of chest normal Resp normal respiratory effort, normal air movement, no use of accessory muscles and clear to auscultation bilaterally Cardio regular rate, regular rhythm, no murmurs and peripheral pulses 2+ throughout GI normal to inspection, nondistended, normoactive bowel sounds, soft to palpation, non-tender and non-distended Back/Spine Back/Spine Narrative: Range of motion reduced by mid back pain. No tenderness to palpation. Extremity normal to inspection, full ROM and no pedal edema Skin no rashes or lesions noted Neuro moves all extremities and no focal motor deficits Speech: speech normal Psych mental status grossly normal Assessment & Plan Assessment/Plan (1) Fall: (2) Compression fracture of T8 vertebra: QUALIFIERS: Encounter type: sequela Qualified Code(s): S22.060S - Wedge compression fracture of T7-T8 vertebra, sequela (3) Compression fracture of T7 vertebra: QUALIFIERS: Encounter type: initial encounter Qualified Code(s): S22.060A - Wedge compression fracture of T7-T8 vertebra, initial encounter for closed fracture PLAN: Plan Patient is an 83-year-old female who presented to [facility] ED on 02/26/2024 with back pain after a fall at home. 1. Fall with acute T7 vertebral compression fracture, acute on chronic debility, history of chronic T8 compression fracture ? PT/OT/case management following. Orthopedic surgery evaluated. Lives at home alone, uses a rollator for ambulation but otherwise good functional status and independent with ADLs. Had mechanical fall onto back with significant back pain that prompted this admission. CT spine showed an acute moderate compression fracture of T8. However, MRI T-spine on 02/27 showed an acute mild compression fracture of T7 along with a chronic severe compression fracture of T8 with mild disc retropulsion leading to moderate spinal stenosis. Ortho evaluated on 02/27, no need for surgical intervention during this hospitalization. Recommended PT/OT and pain control with oral and topical medications. Planning for SNF on discharge given her worsened functional status currently. Will plan to follow- up with orthopedics after SNF for possible cement augmentation procedure. Continue pain control with scheduled Tylenol, lidocaine patch, p.o. oxycodone as needed and IV morphine as needed. If remains stable tomorrow, will be medically ready for discharge. 2. History of alcohol abuse ? Usually drinks 2 Rebecca drinks daily. Has been on CIWA protocol out of precaution and has not triggered this, but will continue for now. 3. Leukocytosis, improving ? WBC count 19 on admit, improved to 12 on hospital day 2. Suspect due to acute stress state and hemoconcentration of labs, no fevers and no infectious symptoms. No need for antibiotics at this time. 4. Chronic hyponatremia ? Sodium level stable at baseline around 126-129 during hospitalization. No further management needed. Chronic medical conditions: ? Obesity: BMI 32 on admit. Complicates hospital course, care and prognosis. ? Hypertension: Stable, continue home spironolactone, Lasix and atenolol. ? GERD: Stable, continue home famotidine. DVT prophylaxis: Lovenox CODE STATUS: Full code, verified Expected disposition: SNF, 1 to 2 days Total clinical time spent by myself addressing the patient's medical issues, reviewing all the data, and collaborating with patient's care team: 35 minutes. Charges/Coding Visit Charges Inpatient E&M: 76796 Subs Hosp L2
--- NOTE | 2024-02-28 12:26 | CASEMGMT ---
Addendum entered by Faiza Killian 02/28/24 15:16: [facility] is unable to accept referal. [facility] is pt second choice and pt is agreeable to referral. DCA advised. PAUL Gutierrez Original Note: Social Work- A list of SNF providers including quality and resource use data and consistent with the patient?s preferred geographic region, medical needs, and insurance network were provided from the CarePort Guide. Pt chose [facility] as preference with [facility] for alternate. Pt requested information on M[facility]; printed resources provided. SW completed referral to TCU. PAUL Gutierrez
--- NOTE | 2024-02-28 12:44 | CASEMGMT ---
BAYRON RAHMAN Assessment Face to Face with patient for initial transition planning/care coordination assessment. BAYRON RAHMAN introduced self and role at [facility], pt voices understanding. Pt is A&Ox4 and is resting comfortably in bed and is calm. Pt daughter at bedside. Care providers, pharmacy, and demographics verified. Admitting dx: Fall LACE Strata: 2 PCP: Angelina Harp Specialists: Mervat (PM) Preferred Pharmacy: [facility] Patricia Insurance: [facility] Prescription Benefit: Yes LNOK: Suzy Holguin (LUANA), Arthur Tamayo (Son) Living Arrangements: Pt lives alone in a two story home with a FFSU and 3-4 steps to enter with handrails ADLs/IADLs: Ind at baseline. Pt states that she has a private wheat cleaner come in once or twice per month Transportation: Pt drives self short distances and states that she has plenty of family and friends that can drive her longer distances. Denies concerns. DME: Cane. FWW. Rollator. BP Monitor. Pulse Ox. Walk in shower with GB and chair. Pt declines medical alert info and states that she communicates with her children every morning and evening to let them know her current status. HHC/SNF: HHC history x 2 years ago but cannot recall the name of the agency. Denies SNF Hx Pt?s goal: Return to PLOF Plan: SNF. PT note states that the pt ambulated 10 ft and the 6-Click score is 16. Pt states that she is willing to go to a SNF for further rehab. A list of local in network SNF provided to the pt at this time. Pt states that she prefers [facility] as her first choice and [facility] as her second choice for now. Report given to SW at this time. Simin Hernandez RN, CM
--- NOTE | 2024-02-28 13:04 | CON.PCM.OR_ITS ---
HPI Consult Data Date of Consult: 02/28/24 HPI Narrative HPI Narrative: MANUEL WALLER, is a 83 F who presents with mild acute T7 compression fracture, old healed T8 compression fracture. Martin had a witnessed fall at home and she fell on her buttocks on Wednesday and was brought into the emergency room. I was consulted due to the CT finding of an apparent acute T8 fracture. From my review of the images, it appeared that she had the T8 fracture and x-rays back from 2021. I recommended her to obtain an MRI thoracic spine. She had underwent the MRI this morning. I saw the patient on 305 with family. She has had low back pain for which she undergoes treatment with Dr. Crowell with multiple injections over the last 2 to 3 years. When asked specifically if this was lower back injections or upper back, the family says that these are most likely the lower back. She denies any pain in the upper back over the years until Wednesday when she had this new fall. She denies any weakness in the lower extremities. She has balance deficits at baseline. She ambulates with the help of a rollator prior to the injury and is now ambulating to and fro from the bathroom with the help of a regular walker. [facility] Medical History (Updated 02/28/24 @ 13:[address] Rodriguez Wood MD) Obesity Allergic rhinitis GERD (gastroesophageal reflux disease) Sjogrens syndrome Fibromyalgia HTN (hypertension) Home Medications ?Medication ?Instructions ?Recorded ?Last Taken ?Type acetaminophen 300 mg-codeine 30 mg 1 tab PO Q6H PRN PRN right knee 02/26/24 02/26/24 History tablet pain atenolol 25 mg tablet 12.5 mg PO DAILY blood pressure 02/26/24 02/25/24 History cholecalciferol (vitamin D3) 1 tab PO DAILY supplement 02/26/24 02/25/24 History famotidine 20 mg tablet (Acid 20 mg PO DAILY 02/26/24 Unknown History Controller) flaxseed oil PO DAILY 02/26/24 Unknown History furosemide 20 mg tablet 20 - 40 mg PO DAILY PRN swelling 02/26/24 02/25/24 History loratadine 10 mg tablet 10 mg PO DAILY allergy 02/26/24 02/26/24 History (Allerclear) potassium chloride 20 mEq 10 meq PO DAILY supplement 02/26/24 Unknown History tablet,extended release(part/cryst) spironolactone 25 mg tablet 25 mg PO DAILY blood pressure 02/26/24 02/26/24 History Allergy/AdvReac Type Severity Reaction Status Date / Time No Known Allergies Allergy Unverified 08/29/19 12:56 Family History (Updated 02/26/24 @ 21:[address] Nishi Velásquez MD) Mother CVA (cerebral vascular accident) Hypertension Father Heart disease CAD (coronary artery disease) Myocardial infarction Hypertension Alcohol abuse Surgical History History of tonsillectomy and adenoidectomy History of delivery Social History (Updated 02/26/24 @ 21:[address] Nishi Velásquez MD) household members: none Smoking Status: Never smoker alcohol intake: current alcohol intake frequency: 0-2 drinks per day Alcohol type: hard liquor details: Notes usually 2 (family reports likely more) smirnoff drinks daily. substance use type: does not use Vital Signs Vital Signs Vital Signs: 02/27/24 15:00 02/27/24 15:00 02/27/24 19:57 Temperature 98.4 F Temperature Source Temporal Pulse Rate 78 78 Pulse Strength Normal (2+) Respiratory Rate 18 Respiratory Effort Respiratory Depth Respiratory Pattern Blood Pressure 138/68 H Blood Pressure Mean 91 Blood Pressure Source Monitor Blood Pressure Position Semi-Fowlers Blood Pressure Location Left Arm Pulse Ox 97 Oxygen Delivery Method Room Air 02/27/24 20:03 02/28/24 02:15 02/28/24 07:25 Temperature 98.0 F 98.1 F Temperature Source Oral Oral Pulse Rate 77 63 Pulse Strength Respiratory Rate 16 16 Respiratory Effort Respiratory Depth Respiratory Pattern Blood Pressure 122/73 H 156/74 H Blood Pressure Mean 89 101 Blood Pressure Source Monitor Monitor Blood Pressure Position Semi-Fowlers Semi-Fowlers Blood Pressure Location Left Arm Right Arm Pulse Ox 96 96 94 Oxygen Delivery Method Room Air Room Air Room Air 02/28/24 09:26 02/28/24 09:27 Temperature 97.6 F L Temperature Source Oral Pulse Rate 68 Pulse Strength Respiratory Rate 16 Respiratory Effort Normal Non-Labored Respiratory Depth Normal Respiratory Pattern Normal Blood Pressure 172/73 H Blood Pressure Mean 106 Blood Pressure Source Monitor Blood Pressure Position Semi-Fowlers Blood Pressure Location Left Arm Pulse Ox 98 Oxygen Delivery Method Room Air Room Air Weight Weight: 171 lb 4.787 oz Body Mass Index (BMI) 32.3 Physical Exam Narrative Examination the back shows lidocaine patch in the upper back. There is mild tenderness in the spinous process throughout the mid thoracic spine. No obvious gibbus. Neurologic evaluation of lower extremity shows 5 x 5 power normal shows normal sensations in all dermatomes. Lab / Micro Data 02/27/24 04:20 02/27/24 04:20 Imaging Radiology Impression Thoracic Spine MRI 02/28/24 10:00 IMPRESSION: Acute mild compression fracture of T7 without retropulsion into the spinal canal. Chronic severe compression fracture of T8 with 2 mm retropulsion of the superior endplate in the spinal canal and with a central disc protrusion and focal kyphosis producing moderate spinal stenosis with abutment of the central spinal cord. Electronically Signed: Tito Gutierrez MD at 11:56 EDT , Assessment & Plan Assessment/Plan (1) Compression fracture of T7 vertebra: QUALIFIERS: Encounter type: initial encounter Qualified Code(s): S22.060A - Wedge compression fracture of T7-T8 vertebra, initial encounter for closed fracture (2) Compression fracture of T8 vertebra: QUALIFIERS: Encounter type: sequela Qualified Code(s): S22.060S - Wedge compression fracture of T7-T8 vertebra, sequela PLAN: Plan I evaluated the CT scan of the thoracic spine from Wednesday as well as the MRI thoracic spine from today. Patient has an acute mild T7 compression fracture suggestive from the STIR hyperintensity. The T8 compression fracture deformity is likely old healed. CT does not show any height loss at T7. X-rays of the thoracic spine from 2021 showed a T8 compression deformity. I explained to the patient and family the imaging findings. I believe her newer pain from the new fall is likely from the mild T7 acute compression fracture. Treatment options for this include rest, analgesics. Bracing may be a possibility but T7 is a relatively high to brace well. I would like her to follow-up with me in clinic in 1 to 2 weeks for repeat x-rays to see if there is progressive height loss at T7. Possibility of cement augmentation was discussed. Patient will let us know if her pain is worsening or getting better with time and repeat x-rays will also help decide need for such cement augmentation. Patient was in agreement. Charges/Coding Visit Charges Inpatient E&M: 69675 Init Hosp L3
--- NOTE | 2024-02-28 13:40 | CASEMGMT ---
Social Work SW met with pt to discuss advance directives.? Pt confirms she has completed a living will and health care POA naming son, Arthur, and daughter, Suzy .? Pt notified that documents are not on file at [facility] and SW requested they be brought in for scanning into the EMR.? PAUL Gutierrez
--- NOTE | 2024-02-28 15:22 | CASEMGMT ---
Addendum entered by Brenda Henning 02/28/24 16:38: [facility] has accepted and will start precert. SW updated. Brenda Henning DC Planning Asst. Original Note: Discharge Planning Referral sent to [facility] Brenda Henning DC Planning Asst.
[2024-02-28 15:27] VITALS: BP 155/69; PULSE 68; RESP 18; TEMP 36.5; O2SAT 98
--- NOTE | 2024-02-28 16:13 | CASEMGMT ---
Social Work- SW met with pt and son, Arthur, to advise that [facility] accepted referral, however, she would be in a private room on the LTC side. Pt and son are agreeable. CECIL advised for [facility] to begin precert. PAUL Gutierrez
[2024-02-28 20:07] VITALS: BP 159/60; PULSE 68; RESP 16; TEMP 36.6; O2SAT 97
[2024-02-28] MEDS: Atenolol 25 MG Tablet 12.5 MG PO (21:00)
[2024-02-29] MEDS: oxyCODONE 5 MG Tablet 2.5 MG PO (01:32)
[2024-02-29 02:51] VITALS: BP 155/65; PULSE 64; RESP 16; TEMP 37.1; O2SAT 96
[2024-02-29] MEDS: Acetaminophen 500 MG Tablet 1000 MG PO ×3 (04:11→20:46)
[2024-02-29 04:16] VITALS: BMI 32.1
[2024-02-29] MEDS: Morphine 2 MG/ML Syringe IV (04:24)
[2024-02-29] MEDS: 0.9% Saline Lock 10 ML Syringe IV ×2 (04:25→09:00)
[2024-02-29 06:59] LABS: Hematocrit 40.5 % (37-47); Hemoglobin 13.7 g/dL (12.0-15.0); Mean Corp Hgb Conc 33.8 g/dL (32-36); Mean Corpuscular Hgb 34.1 pg (27.0-32.0); Mean Corpuscular Volume 100.7 fL (81-99); Platelet Count 232 K/mm3 (150-450); RBC Distribution Width CV 11.9 % (11.6-14.6); RBC Distribution Width SD 44.6 fl (35.1-43.9); Red Blood Count 4.02 M/mm3 (4.2-5.4)
[2024-02-29 07:22] LABS: Anion Gap 4 (5-15); BUN 11 mg/dL (7-18); BUN/Creat Ratio 14.5 RATIO (10-20); Calcium,Total 9.1 mg/dL (8.5-10.1); Chloride 92 mmol/L (98-107); Creatinine, Serum 0.76 mg/dL (0.55-1.02); EST Glomerular Filtration Rate 77 mL/min (>60); Est Glom Filt Rate - Afr Amer 94 mL/min (>60); Estimated Creatinine Clearance 49.25 ml/min; Glucose 93 mg/dL (74-106); Potassium 4.6 mmol/L (3.5-5.1); Sodium Level 122 mmol/L (136-145)
[2024-02-29 07:59] LABS: Osmolality, Serum 260 mOsm/KG (280-301)
[2024-02-29 08:34] VITALS: BP 152/79; PULSE 67; RESP 14; TEMP 37.1; O2SAT 97
[2024-02-29] MEDS: Folic Acid 1 MG Tablet PO (08:41)
[2024-02-29] MEDS: Multivitamins,Ther W-Minerals Tablet 1 TABLET PO (08:41)
[2024-02-29] MEDS: Spironolactone 25 MG Tablet PO (08:41)
[2024-02-29] MEDS: Thiamine Hydrochloride 100 MG Tablet PO (08:41)
[2024-02-29] MEDS: Furosemide 20 MG Tablet PO (08:42)
[2024-02-29] MEDS: Loratadine 10 MG Tablet PO (08:42)
[2024-02-29] MEDS: Lidocaine 5% Patch 1 PATCH TOPICAL (08:43)
[2024-02-29] MEDS: Famotidine 20 MG Tablet PO (08:43)
[2024-02-29] MEDS: 0.9% Normal Saline (1000mL) 1,000 ML 250 ML IV (08:55)
[2024-02-29] MEDS: Gabapentin 100 MG Capsule PO ×2 (09:00→17:34)
--- NOTE | 2024-02-29 10:41 | CASEMGMT ---
Discharge Planning Updates sent to [facility] with note that pt should be ready for dc tomorrow. Precert still pending. Brenda Henning, [facility] Planning Asst.
--- NOTE | 2024-02-29 11:13 | PCM.PN.HOSP ---
Reason for Visit Reason for Visit: Diagnoses Wedge compression fracture of T7-T8 vertebra, initial encounter for closed fracture (02/26/24) Wedge compression fracture of T7-T8 vertebra, sequela (02/26/24) Unspecified fall, initial encounter (02/26/24) Subjective Subjective Saw patient at bedside this morning, daughter present. Patient notes that overnight she did have significant mid back pain making it difficult for her to get comfortable and get much sleep. She has been able to move around with assistance but continues to have pain with certain motions that has not improved from previous days. States the IV pain medication has been helpful for her but no other pain medications have seemed to be that helpful. Denies any other new concerns today. Objective Data Objective Data Vital Signs: Vital Signs Temp Pulse Resp BP Pulse Ox O2 Del Method 98.7 F 67 14 152/79 H 97 Room Air 02/29/24 08:34 02/29/24 08:34 02/29/24 08:34 02/29/24 08:34 02/29/24 08:34 02/29/24 08:34 Oxygen Delivery Method Room Air Weight: 77.3 kg Body Mass Index (BMI) 32.1 Intake & Output: Intake and Output for Last 24 Hours 02/27/24 02/28/24 02/29/24 23:59 23:59 23:59 Intake Total 2000 / 2300 500 / 500 500 / 500 Output Total 350 / 350 Balance 1650 / 1950 500 / 500 500 / 500 Lab / Micro Data 02/29/24 06:06 02/29/24 06:06 Labs: Laboratory Results - last 24 hr 02/29/24 06:06: WBC 11.0, RBC 4.02 L, Hgb 13.7, Hct 40.5, MCV 100.7 H, MCH 34.1 H, MCHC 33.8, RDW Std Deviation 44.6 H, RDW Coeff of Chavo 11.9, Plt Count 232, MPV 9.0, Sodium 122 L, Potassium 4.6, Chloride 92 L, Carbon Dioxide 26.0, Anion Gap 4 L, BUN 11, Creatinine 0.76, Estim Creat Clear Calc 49.25, Est GFR (MDRD) Af Amer 94, Est GFR (MDRD) Non-Af 77, BUN/Creatinine Ratio 14.5, Glucose 93, Serum Osmolality 260 L, Calcium 9.1 Radiography Diagnostic Testing: Radiology Impression Thoracic Spine MRI 02/28/24 10:00 IMPRESSION: Acute mild compression fracture of T7 without retropulsion into the spinal canal. Chronic severe compression fracture of T8 with 2 mm retropulsion of the superior endplate in the spinal canal and with a central disc protrusion and focal kyphosis producing moderate spinal stenosis with abutment of the central spinal cord. Electronically Signed: Tito Gutierrez MD at 11:56 EDT , Physical Exam Const alert, oriented x3 and no apparent distress Constitutional Narrative: Pleasant elderly female, obese, sitting up comfortably in bed, conversing normally, in no acute distress. General Appearance: cooperative and comfortable HEENT normocephalic, head/scalp atraumatic, hearing grossly normal bilaterally, nasal mucous membranes and turbinates normal and moist oral mucous membranes Eyes PERRL, EOMs intact bilaterally and conjunctivae normal Neck full ROM Chest inspection of chest normal Resp normal respiratory effort, normal air movement, no use of accessory muscles and clear to auscultation bilaterally Cardio regular rate, regular rhythm, no murmurs and peripheral pulses 2+ throughout GI normal to inspection, nondistended, normoactive bowel sounds, soft to palpation, non-tender and non-distended Back/Spine Back/Spine Narrative: Range of motion reduced by mid back pain. Mild tenderness in spinous process throughout mid thoracic spine. No sensation changes. Extremity normal to inspection, full ROM and no pedal edema Skin no rashes or lesions noted Neuro moves all extremities and no focal motor deficits Speech: speech normal Psych mental status grossly normal Assessment & Plan Assessment/Plan (1) Fall: (2) Compression fracture of T8 vertebra: QUALIFIERS: Encounter type: sequela Qualified Code(s): S22.060S - Wedge compression fracture of T7-T8 vertebra, sequela (3) Compression fracture of T7 vertebra: QUALIFIERS: Encounter type: initial encounter Qualified Code(s): S22.060A - Wedge compression fracture of T7-T8 vertebra, initial encounter for closed fracture (4) Hyponatremia: PLAN: Plan Patient is an 83-year-old female who presented to [facility] ED on 02/26/2024 with back pain after a fall at home. 1. Fall with acute T7 vertebral compression fracture, acute on chronic debility, history of chronic T8 compression fracture ? PT/OT/case management following. Orthopedic surgery evaluated. Lives at home alone, uses a rollator for ambulation but otherwise good functional status and independent with ADLs. Had mechanical fall onto back with significant back pain that prompted this admission. CT spine showed an acute moderate compression fracture of T8. However, MRI T-spine on 02/27 showed an acute mild compression fracture of T7 along with a chronic severe compression fracture of T8 with mild disc retropulsion leading to moderate spinal stenosis. Ortho evaluated on 02/27, no need for surgical intervention during this hospitalization, planning for possible cement augmentation procedure after SNF stay. Patient has continued to have significant pain only relieved with IV pain medications on 02/28. Will consult pain management to determine if patient may be a candidate for an injection while inpatient to assist with pain control. Continue pain control with scheduled Tylenol, lidocaine patch, p.o. oxycodone as needed and IV morphine as needed. Planning for SNF on discharge. 2. History of alcohol abuse ? Usually drinks 2 Rebecca drinks daily. Has been on CIWA protocol out of precaution and has not triggered this, but will continue for now. 3. Leukocytosis, resolved ? WBC count 19 on admit, resolved by hospital day 3. Suspect due to acute stress state and hemoconcentration of labs, no fevers and no infectious symptoms. No need for antibiotics at this time. 4. Acute on chronic hyponatremia ? Baseline sodium 126-129. Sodium dropped to 122 on 02/28 for unclear reason. Urine sodium, urine osmolality and serum osmolality ordered. Will give 500 cc normal saline bolus and recheck sodium level this afternoon. 1500 mL fluid restriction ordered. Chronic medical conditions: ? Obesity: BMI 32 on admit. Complicates hospital course, care and prognosis. ? Hypertension: Stable, continue home spironolactone, Lasix and atenolol. ? GERD: Stable, continue home famotidine. DVT prophylaxis: Lovenox CODE STATUS: Full code, verified Expected disposition: SNF, 1 to 2 days Total clinical time spent by myself addressing the patient's medical issues, reviewing all the data, and collaborating with patient's care team: 35 minutes. Charges/Coding Visit Charges Inpatient E&M: 07431 Subs Hosp L2
[2024-02-29 14:01] LABS: Osmolality, Urine 245 mOsm/KG
[2024-02-29 14:30] VITALS: BP 146/67; PULSE 70; RESP 16; TEMP 36.6; O2SAT 94
[2024-02-29 15:20] LABS: Anion Gap 9 (5-15); BUN 11 mg/dL (7-18); BUN/Creat Ratio 12.5 RATIO (10-20); Chloride 92 mmol/L (98-107); Creatinine, Serum 0.88 mg/dL (0.55-1.02); Estimated Creatinine Clearance 44.78 ml/min; Potassium 4.2 mmol/L (3.5-5.1); Sodium Level 125 mmol/L (136-145)
[2024-02-29 18:09] LABS: Urine Sodium 62 mmol/L (Not Establ.)
[2024-02-29] MEDS: Atenolol 25 MG Tablet 12.5 MG PO (20:46)
[2024-02-29 20:51] VITALS: BP 158/91; PULSE 65; RESP 16; TEMP 36.6; O2SAT 95
[2024-02-29 20:55] LABS: Calcium,Total 8.8 mg/dL (8.5-10.1); EST Glomerular Filtration Rate 65 mL/min (>60); Est Glom Filt Rate - Afr Amer 79 mL/min (>60); Glucose 123 mg/dL (74-106)
[2024-03-01] MEDS: oxyCODONE 5 MG Tablet PO ×4 (02:54→21:09)
[2024-03-01] MEDS: Nystatin Powder 15gm Bottle 1 APPLIC TOPICAL ×3 (02:55→21:37)
[2024-03-01 03:00] VITALS: BP 177/96; PULSE 64; RESP 16; TEMP 36.1; O2SAT 97
[2024-03-01 03:03] VITALS: PULSE 64
[2024-03-01] MEDS: 0.9% Saline Lock 10 ML Syringe IV ×2 (03:03→21:29)
[2024-03-01] MEDS: hydrALAZINE 20 MG/ML Vial 10 MG IV (03:03)
[2024-03-01 05:10] VITALS: BMI 32.3
[2024-03-01] MEDS: Acetaminophen 500 MG Tablet 1000 MG PO ×3 (05:25→21:09)
[2024-03-01 05:31] VITALS: BP 148/75; PULSE 64
[2024-03-01 07:03] LABS: Anion Gap 7 (5-15); BUN 14 mg/dL (7-18); BUN/Creat Ratio 22.8 RATIO (10-20); Calcium,Total 8.9 mg/dL (8.5-10.1); Chloride 92 mmol/L (98-107); Creatinine, Serum 0.61 mg/dL (0.55-1.02); EST Glomerular Filtration Rate 99 mL/min (>60); Est Glom Filt Rate - Afr Amer 119 mL/min (>60); Estimated Creatinine Clearance 49.42 ml/min; Glucose 107 mg/dL (74-106); Potassium 4.2 mmol/L (3.5-5.1); Sodium Level 123 mmol/L (136-145)
[2024-03-01 07:55] VITALS: BP 139/75; PULSE 67; RESP 16; TEMP 36.4; O2SAT 95
[2024-03-01] MEDS: Thiamine Hydrochloride 100 MG Tablet PO (08:12)
[2024-03-01] MEDS: Loratadine 10 MG Tablet PO (08:12)
[2024-03-01] MEDS: Furosemide 20 MG Tablet PO (08:12)
[2024-03-01] MEDS: Folic Acid 1 MG Tablet PO (08:12)
[2024-03-01] MEDS: Gabapentin 100 MG Capsule PO ×2 (08:12→17:44)
[2024-03-01] MEDS: Lidocaine 5% Patch 1 PATCH TOPICAL (08:12)
[2024-03-01] MEDS: Multivitamins,Ther W-Minerals Tablet 1 TABLET PO (08:12)
[2024-03-01] MEDS: Famotidine 20 MG Tablet PO (08:12)
[2024-03-01] MEDS: Spironolactone 25 MG Tablet PO (08:12)
--- NOTE | 2024-03-01 09:06 | NURSING ---
in to talk with patient and daughter after calling Dr. Crowell's office for POC as no note in computer from Dr. Crowell and pt seems to think having injection today and isn't currently NPO. Per Angie Crowell unavailable for procedure today but has reached out to see if Dr. Tapia available. Aware per Angie procedure will be either today or tomorrow and she will call closer to noon with POC. She is aware pt is currently with a diet order. pt and primary RN updated with this and discussed pain medication request with primary RN Laura
--- NOTE | 2024-03-01 12:57 | PN.HOSP_ITS ---
Reason for Visit Reason for Visit: Diagnoses Hypo-osmolality and hyponatremia (02/26/24) Wedge compression fracture of T7-T8 vertebra, initial encounter for closed fracture (02/26/24) Wedge compression fracture of T7-T8 vertebra, sequela (02/26/24) Unspecified fall, initial encounter (02/26/24) Subjective Subjective Saw patient at bedside this morning, daughter present. Patient was noted by nursing staff to have some dysphagia with eating crackers this morning. Patient noted that she has had some degree of swallowing difficulty for a long time and has modified her diet accordingly. States that she feels like some foods get stuck in the lower middle of her chest. Speech therapy had just seen the patient when I arrived this morning. They noted that the patient did have some swallowing difficulty with bedside cookie study and they recommended modified barium swallow study with possible GI evaluation for further workup. Otherwise, patient states Dr. Crowell with pain management saw her yesterday evening and plan is for steroid injection likely tomorrow. Her back pain feels similar to yesterday. No other new concerns today. Objective Data Objective Data Vital Signs: Vital Signs Temp Pulse Resp BP Pulse Ox O2 Del Method 97.6 F L 67 16 139/75 H 95 Room Air 03/01/24 07:55 03/01/24 07:55 03/01/24 07:55 03/01/24 07:55 03/01/24 07:55 03/01/24 07:55 Oxygen Delivery Method Room Air Weight: 77.8 kg Body Mass Index (BMI) 32.3 Intake & Output: Intake and Output for Last 24 Hours 02/28/24 02/29/24 03/01/24 23:59 23:59 23:59 Intake Total 500 / 500 2770 / 2770 Balance 500 / 500 2770 / 2770 Lab / Micro Data 02/29/24 06:06 03/01/24 06:13 Labs: Laboratory Results - last 24 hr 02/29/24 11:35: Urine Osmolality 245 02/29/24 11:51: Sodium 125 L, Potassium 4.2, Chloride 92 L, Carbon Dioxide 23.0, Anion Gap 9, BUN 11, Creatinine 0.88, Estim Creat Clear Calc 44.78, Est GFR (MDRD) Af Amer 79, Est GFR (MDRD) Non-Af 65, BUN/Creatinine Ratio 12.5, Glucose 123 H, Calcium 8.8 02/29/24 17:20: Ur Random Sodium 62 03/01/24 06:13: Sodium 123 L, Potassium 4.2, Chloride 92 L, Carbon Dioxide 24.0, Anion Gap 7, BUN 14, Creatinine 0.61, Estim Creat Clear Calc 49.42, Est GFR (MDRD) Af Amer 119, Est GFR (MDRD) Non-Af 99, BUN/Creatinine Ratio 22.8 H, G lucose 107 H, Calcium 8.9 Physical Exam Const alert, oriented x3 and no apparent distress Constitutional Narrative: Pleasant elderly female, obese, sitting up comfortably in bed, conversing normally, in no acute distress. General Appearance: cooperative and comfortable HEENT normocephalic, head/scalp atraumatic, hearing grossly normal bilaterally, nasal mucous membranes and turbinates normal and moist oral mucous membranes Eyes PERRL, EOMs intact bilaterally and conjunctivae normal Neck full ROM Chest inspection of chest normal Resp normal respiratory effort, normal air movement, no use of accessory muscles and clear to auscultation bilaterally Cardio regular rate, regular rhythm, no murmurs and peripheral pulses 2+ throughout GI normal to inspection, nondistended, normoactive bowel sounds, soft to palpation, non-tender and non-distended Back/Spine Back/Spine Narrative: Range of motion reduced by mid back pain. Mild tenderness in spinous process throughout mid thoracic spine. No sensation changes. Stable. Extremity normal to inspection, full ROM and no pedal edema Skin no rashes or lesions noted Neuro moves all extremities and no focal motor deficits Speech: speech normal Psych mental status grossly normal Assessment & Plan Assessment/Plan (1) Fall: (2) Compression fracture of T8 vertebra: QUALIFIERS: Encounter type: sequela Qualified Code(s): S22.060S - Wedge compression fracture of T7-T8 vertebra, sequela (3) Compression fracture of T7 vertebra: QUALIFIERS: Encounter type: initial encounter Qualified Code(s): S22.060A - Wedge compression fracture of T7-T8 vertebra, initial encounter for closed fracture (4) Hyponatremia: (5) Dysphagia: PLAN: Plan Patient is an 83-year-old female who presented to [facility] ED on 02/26/2024 with back pain after a fall at home. 1. Fall with acute T7 vertebral compression fracture, acute on chronic debility, history of chronic T8 compression fracture ? PT/OT/case management following. Orthopedic surgery and pain management evaluated. Lives at home alone, uses a rollator for ambulation but otherwise good functional status and independent with ADLs. Had mechanical fall onto back with significant back pain that prompted this admission. CT spine showed an acute moderate compression fracture of T8. However, MRI T-spine on 02/27 showed an acute mild compression fracture of T7 along with a chronic severe compression fracture of T8 with mild disc retropulsion leading to moderate spinal stenosis. Ortho evaluated on 02/27, no need for surgical intervention during this hospitalization, planning for possible cement augmentation procedure after SNF stay. Pain management planning for steroid injection on morning of 03/02. Continue pain control with scheduled Tylenol, lidocaine patch, p.o. oxycodone as needed and IV morphine as needed. Planning for SNF on discharge. 2. Dysphagia ? Speech therapy following. Patient reported longstanding mild dysphagia with feeling like some foods get stuck in the mid to lower chest. Modified barium swallow study planned for morning of 03/02. Pending results, may need GI evaluation for EGD for further workup. 3. Acute on chronic hyponatremia ? Nephrology consulted. Baseline sodium 126-129. Sodium dropped to 122 on 02/28 for unclear reason. Gave 500 cc normal saline bolus with improvement to 125, but dropped to 123 again on morning of 03/01. Hyponatremia studies completed; suspect patient may have mild degree of SIADH in setting of ongoing pain. Continue 1500 mL fluid restriction. Continue to monitor sodium daily. 4. History of alcohol abuse ? Usually drinks 2 Rebecca drinks daily. Has been on CIWA protocol out of precaution and has not triggered this, but will continue for now. 5. Leukocytosis, resolved ? WBC count 19 on admit, resolved by hospital day 3. Suspect due to acute stress state and hemoconcentration of labs, no fevers and no infectious symptoms. No need for antibiotics at this time. Chronic medical conditions: ? Obesity: BMI 32 on admit. Complicates hospital course, care and prognosis. ? Hypertension: Stable, continue home spironolactone, Lasix and atenolol. ? GERD: Stable, continue home famotidine. DVT prophylaxis: Lovenox CODE STATUS: Full code, verified Expected disposition: SNF, 2 to 3 days Total clinical time spent by myself addressing the patient's medical issues, reviewing all the data, and collaborating with patient's care team: 35 minutes. Charges/Coding Visit Charges Inpatient E&M: 52034 Subs Hosp L2
[2024-03-01 14:20] VITALS: BP 154/77; PULSE 65; RESP 18; TEMP 36.6; O2SAT 98
[2024-03-01 21:24] VITALS: BP 142/75; PULSE 72; RESP 18; TEMP 36.4; O2SAT 99
[2024-03-01] MEDS: Atenolol 25 MG Tablet 12.5 MG PO (21:29)
[2024-03-02] VITALS (9 sets, daily range): BP systolic 142–170; BP diastolic 68–95; PULSE 62–70; RESP 16–18; TEMP 36.2–36.6; O2SAT 96–100; BMI 32.3
[2024-03-02] MEDS: Acetaminophen 500 MG Tablet 1000 MG PO ×2 (05:15→14:57)
[2024-03-02 07:37] LABS: Anion Gap 6 (5-15); BUN 14 mg/dL (7-18); BUN/Creat Ratio 16.7 RATIO (10-20); Calcium,Total 9.2 mg/dL (8.5-10.1); Chloride 93 mmol/L (98-107); Creatinine, Serum 0.84 mg/dL (0.55-1.02); EST Glomerular Filtration Rate 69 mL/min (>60); Est Glom Filt Rate - Afr Amer 84 mL/min (>60); Estimated Creatinine Clearance 47.06 ml/min; Glucose 110 mg/dL (74-106); Potassium 4.5 mmol/L (3.5-5.1); Sodium Level 124 mmol/L (136-145)
--- NOTE | 2024-03-02 09:43 | PCM.PRE.AN2 ---
ASA Classification* ASA Classification ASA Classification: 3 Assessment & Plan Anesthesia* Anesthesia Assessment Anesthesia Assessment: Discussed sedation and/or anesthesia options, risks, benefits, and alternatives with patient/parents/legal guardian/POA. Questions invited. The patient/parents/legal guardian/POA seems to understand and agrees to proceed with anesthesia plan. Reviewed the physical assessment, medical history, allergy history and patient home medications list prior to surgery/procedure/anesthetic and documented any changes. Performed airway and anesthesia risk assessments. Anesthesia Type Anesthesia Type: MAC (see written pre-anesthesia record for full assessment) Anesthesia Focused Assessment* Temperature: 97.6 F Pulse Rate: 63 Blood Pressure: 152/72 Respiratory Rate: 18 Pulse Ox: 99 Airway Assessment Mouth opens: >3 cm Mallampati Score: II Focused Labs Anesthesia Preop lab: CBC WBC 11.0 K/mm3 (4.4-11.0) 02/29/24 06:06 RBC 4.02 M/mm3 (4.2-5.4) L 02/29/24 06:06 Hgb 13.7 g/dL (12.0-15.0) 02/29/24 06:06 Hct 40.5 % (37-47) 02/29/24 06:06 Plt Count 232 K/mm3 (150-450) 02/29/24 06:06 CHEMISTRY Potassium 4.5 mmol/L (3.5-5.1) 03/02/24 06:07 Sodium 124 mmol/L (136-145) L 03/02/24 06:07 Magnesium 1.7 mg/dL (1.6-2.6) 02/26/24 20:58 Phosphorus 2.9 mg/dL (2.5-4.9) 02/26/24 20:58 BUN 14 mg/dL (7-18) 03/02/24 06:07 Creatinine 0.84 mg/dL (0.55-1.02) 03/02/24 06:07 Glucose 110 mg/dL (74-106) H 03/02/24 06:07 TSH 1.66 uIU/mL (0.358-3.74) 01/17/24 13:14 COAG Pre-Assessment Diagnosis/Proposed Procedure Planned Operative Procedure(s): dahlia Anesthesia History 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 When Was Last Pacemaker Check QUESTION #4 FULL TEXT: You/Your Family Experience fever (hyperthermia) with Anesthesia Last Oral Intake Last Oral intake: Last Oral Intake NPO since 00:00 03/02/24 08:32 Meds taken in AM with sips of Yes 03/02/24 08:32 water? Meds patient instructed to see MAR 03/02/24 08:32 take am of surgery PONV PONV - computer lab para professional: PONV - computer lab para professional Female HX of Motion Sickness HX of N/V After Surgery Non-Smoker Duration of Surgery greater than 60 minutes Number of Risk Factors PONV Score Height & Weight Height & Weight: Anesthesia: Height & Weight Height 5 ft 1 in 03/02/24 08:32 Weight: 77.8 kg 03/02/24 08:32 Body Mass Index (BMI) 32.3 03/02/24 08:32 Respiratory Assessment Respiratory Assessment - computer lab para professional: Respiratory Tract Infection Hx - computer lab para professional Hx Respiratory Tract Infection No 03/01/24 22:50 STOP Sleep Apnea STOP Sleep Apnea - computer lab para professional: STOP Sleep Apnea - computer lab para professional Hx Hypertension Yes 02/27/24 09:48 Hx Sleep Apnea No 02/26/24 21:27 CPAP BIPAP Do you snore loudly (louder Yes 02/26/24 21:27 than talking or can be heard Do you often feel tired/ No 02/26/24 21:27 fatigued/ sleepy during daytime? Has anyone observed you stop No 02/26/24 21:27 breathing during sleep? STOP Results Positive 02/26/24 21:27 QUESTION #5 FULL TEXT : Do you snore loudly (louder than talking or can be heard through closed doors)? 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 Specify any problems Hx of Preganancy in last 3 No 02/26/24 21:27 Months Nurse Filling Out Transfusion EVIZZO 02/26/24 21:27 & Questions: Date: 02/26/24 02/26/24 21:27 Time: 21:34 02/26/24 21:27 Patient unable to answer at this time (ie. confused, unrespo /Reproduction History /Reproductive History - computer lab para professional: /Reproductive Hx- computer lab para professional Hx Now No 03/01/24 22:50 Gestational Age (in weeks): EDC: Hx Hx Para Hx Section SAB Active Medications Active Medications: Current Medications Generic Name Dose Route Start Last Admin Trade Name Freq PRN Reason Stop Dose Admin Acetaminophen 1,000 mg 02/27/24 14:00 03/02/24 05:15 Acetaminophen 500 Mg Tablet PO 1,000 mg Q8 BROOKE Administration Albuterol Sulfate 2.5 mg 02/26/24 21:25 Albuterol 2.5 Mg/3 Ml Vial.Neb. INHALATION Q2H PRN PRN Dyspnea, wheezing Atenolol 12.5 mg 02/27/24 21:00 03/01/24 21:29 Atenolol 25 Mg Tablet PO 12.5 mg QPM BROOEK Administration Protocol Famotidine 20 mg 02/27/24 10:00 03/01/24 08:12 Famotidine 20 Mg Tablet PO 20 mg DAILY BROOKE Administration Folic Acid 1 mg 02/27/24 08:00 03/01/24 08:12 Folic Acid 1 Mg Tablet PO 1 mg BREAKFAST BROOKE Administration Furosemide 20 mg 02/27/24 10:00 03/01/24 08:12 Furosemide 20 Mg Tablet PO 20 mg DAILY BROOKE Administration Protocol Gabapentin 100 mg 02/26/24 21:25 03/01/24 17:44 Gabapentin 100 Mg Capsule PO 100 mg BIDCM BROOKE Administration Guaifenesin 20 ml 02/26/24 21:25 Guaifenesin 10 Ml Udc (200mg/10ml) PO Q4H PRN PRN COUGH Hydralazine HCl 10 mg 02/26/24 21:25 03/01/24 03:03 Hydralazine 20 Mg/Ml Vial IV 10 mg Q4H PRN PRN Administration SBP > 160 Protocol Hydromorphone HCl 0.5 mg 02/29/24 07:41 Hydromorphone 0.5 Mg/0.5 Ml Syringe IV Q4H PRN PRN Pain Score 6-10 Lidocaine 1 patch 02/28/24 10:00 03/01/24 08:12 Lidocaine 5% Patch TOPICAL 1 patch DAILY BROOKE Administration Protocol Loratadine 10 mg 02/27/24 10:00 03/01/24 08:12 Loratadine 10 Mg Tablet PO 10 mg DAILY BROOKE Administration Multivitamins/Minerals 1 tablet 02/27/24 08:00 03/01/24 08:12 Multivitamins,Ther W-Minerals Tablet PO 1 tablet BREAKFAST BROOKE Administration Nystatin 1 applic 03/01/24 10:00 03/01/24 21:37 Nystatin Powder 15gm Bottle TOPICAL 1 applic BID BROOKE Administration Protocol Ondansetron HCl 4 mg 02/26/24 21:25 Ondansetron 4 Mg/2 Ml Vial IV Q8H PRN PRN NAUSEA/VOMITING Oxycodone HCl 5 mg 02/29/24 07:42 03/01/24 21:09 Oxycodone 5 Mg Tablet PO 5 mg Q4H PRN PRN Administration Pain Score 4-10 Prochlorperazine Edisylate 5 mg 02/26/24 21:25 Prochlorperazine 10 Mg/2 Ml Vial IV Q4H PRN PRN Breakthrough nausea/vomiting Senna/Docusate Sodium 2 tablet 02/26/24 21:25 Senna/Docusate Sodium 1 Tablet PO BID PRN PRN Constipation Sodium Chloride 10 - 40 ml 02/26/24 21:39 03/01/24 21:29 0.9% Saline Lock 10 Ml Syringe IV 10 ml UD PRN Administration SALINE FLUSH Spironolactone 25 mg 02/27/24 10:00 03/01/24 08:12 Spironolactone 25 Mg Tablet PO 25 mg DAILY BROOKE Administration Protocol Thiamine HCl 100 mg 02/27/24 08:00 03/01/24 08:12 Thiamine Hydrochloride 100 Mg Tablet PO 100 mg BREAKFAST BROOKE Administration PFSH Medical History (Updated 03/01/24 @ 16:[address] Bradley Lundy, DO) Obesity Allergic rhinitis GERD (gastroesophageal reflux disease) Sjogrens syndrome Fibromyalgia HTN (hypertension) Home Medications ?Medication ?Instructions ?Recorded ?Last Taken ?Type acetaminophen 300 mg-codeine 30 mg 1 tab PO Q6H PRN PRN right knee 02/26/24 02/26/24 History tablet pain atenolol 25 mg tablet 12.5 mg PO DAILY blood pressure 02/26/24 02/25/24 History cholecalciferol (vitamin D3) 1 tab PO DAILY supplement 02/26/24 02/25/24 History famotidine 20 mg tablet (Acid 20 mg PO DAILY 02/26/24 Unknown History Controller) flaxseed oil PO DAILY 02/26/24 Unknown History furosemide 20 mg tablet 20 - 40 mg PO DAILY PRN swelling 02/26/24 02/25/24 History loratadine 10 mg tablet 10 mg PO DAILY allergy 02/26/24 02/26/24 History (Allerclear) potassium chloride 20 mEq 10 meq PO DAILY supplement 02/26/24 Unknown History tablet,extended release(part/cryst) spironolactone 25 mg tablet 25 mg PO DAILY blood pressure 02/26/24 02/26/24 History Allergy/AdvReac Type Severity Reaction Status Date / Time No Known Allergies Allergy Unverified 08/29/19 12:56 Family History (Updated 02/26/24 @ 21:[address] Nishi Velásquez MD) Mother CVA (cerebral vascular accident) Hypertension Father Heart disease CAD (coronary artery disease) Myocardial infarction Hypertension Alcohol abuse Surgical History History of tonsillectomy and adenoidectomy History of delivery Social History (Updated 02/26/24 @ 21:[address] Nishi Velásquez MD) household members: none Smoking Status: Never smoker alcohol intake: current alcohol intake frequency: 0-2 drinks per day Alcohol type: hard liquor details: Notes usually 2 (family reports likely more) smirnoff drinks daily. substance use type: does not use Review of Systems (Anesthesia) ROS Narrative System reviewed and no additional complaints, except as documented.
[2024-03-02] MEDS: Lactated Ringers 1,000 ML 15 ML IV (09:57)
--- NOTE | 2024-03-02 10:40 | RAD_ITS ---
PROCEDURE: Fluoroscopy INDICATION: Female, 83 years old. Epidural block FLUOROSCOPY TIME (if supplied): (41.2 seconds) RADIATION DOSAGE (If Supplied By Facility): ( 9.42 ) mGy, NUMBER OF FLUOROSCOPIC IMAGES: 1 PROCEDURE/TECHNIQUE: Single fluoroscopic image of the spine was obtained for epidural block. Image was obtained for documentation only. RAD/Spine 1 View Any Level IMPRESSION: Intraprocedural exam as described above. Electronically Signed: Alex Sharpe MD at 13:11 EDT ,
[2024-03-02] MEDS: Lidocaine 1% (5 ml sdv) 5 ML Vial (10:49)
[2024-03-02] MEDS: Triamcinolone Acetonide 40 MG/ML Vial (10:49)
--- NOTE | 2024-03-02 10:50 | CASEMGMT ---
Discharge Planning [facility] has obtained auth to admit. Brenda Henning DC Planning Asst.
--- NOTE | 2024-03-02 11:09 | PCM.POST.ANE ---
Anesthesia: Postop Eval I Current Vital Signs Temperature: 97.2 F Pulse Rate: 65 Blood Pressure: 147/73 Respiratory Rate: 18 Pulse Ox: 97 Assessment Airway patent: Yes Spontaneous unlabored respirations: Yes nausea: No Vomiting: No Anesthesia Complication: No Fluid Hydration Crystalloid volume administer (ml): 100 Total IV fluid infused: 100 Progress Note Anesthesia document: Postop Eval 1 completed: Yes
--- NOTE | 2024-03-02 11:35 | CON.PCM.RE_ITS ---
Assessment & Plan Assessment/Plan (1) Hyponatremia: (2) Compression fracture of T7 vertebra: QUALIFIERS: Encounter type: initial encounter Qualified Code(s): S22.060A - Wedge compression fracture of T7-T8 vertebra, initial encounter for closed fracture PLAN: Plan This is an 83 yo female with PMH significant for hypertension, osteoarthritis, fibromyalgia, GERD with hiatal hernia, chronic hyponatremia, alcohol use (around 2 Rebecca drinks least daily), who recently was admitted to the hospital after presenting after sustaining a mechanical fall, found to have compression fracture. Seen by Ortho, recommended conservative treatment. Nephrology consulted in view of low sodium trends. Patient has preserved kidney function. In reviewing past sodium levels patient likely has chronic hyponatremia with baseline sodium ranging around 126-129. On presentation to the emergency room sodium was 129. Her sodium dropped to 122 few days later. Patient was given around 500 mL IV fluids and today sodium is 124. Patient is asymptomatic from hyponatremia. No recent hydrochlorothiazide or antidepressants. Urine sodium 62 after receiving IV fluids. Serum osmolality 260 and urine Osmo 245. TSH normal, 1.66 on 01/17/2024. 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 Continue with restricting fluids. Patient does not need frequent sodium monitoring. labs ordered for am. I had discussion with patient and her family today regarding fluid restriction per day and increasing protein intake. Will add salt tablets. Further orders forthcoming as hospitalization evolves, thank you for allowing us to participate in the care of Ms. Tamayo. HPI Consult Data Date of Consult: 03/02/24 HPI Narrative HPI Narrative: MANUEL TAMAYO, is a 83 F who presented to the emergency room after sustaining a fall. Workup in emergency room included thoracic spine CT with findings of acute moderate compression fracture T8. Patient was admitted for further evaluation and treatment. She has been seen by Ortho, no surgical intervention. Nephrology consulted in view of low sodium levels. Patient has past medical history significant for chronic hyponatremia, daily alcohol use (around 2 Rebecca drinks least daily), hypertension, osteoarthritis, fibromyalgia, GERD with hiatal hernia. On February 25, hospital admission sodium was 129. Her sodium dropped to 122 on February 28. Patient did receive 500 ml normal saline and sodium up to 125. Today patient's sodium was 124. In reviewing past sodium trends she has had multiple episodes of low sodium levels but also normal values as well. Possible baseline sodium 126-129. [facility], [facility] Medical History (Updated 03/01/24 @ 16:[address] Bradley Lundy, DO) Obesity Allergic rhinitis GERD (gastroesophageal reflux disease) Sjogrens syndrome Fibromyalgia HTN (hypertension) Home Medications ?Medication ?Instructions ?Recorded ?Last Taken ?Type acetaminophen 300 mg-codeine 30 mg 1 tab PO Q6H PRN PRN right knee 02/26/24 02/26/24 History tablet pain atenolol 25 mg tablet 12.5 mg PO DAILY blood pressure 02/26/24 02/25/24 History cholecalciferol (vitamin D3) 1 tab PO DAILY supplement 02/26/24 02/25/24 History famotidine 20 mg tablet (Acid 20 mg PO DAILY 02/26/24 Unknown History Controller) flaxseed oil PO DAILY 02/26/24 Unknown History furosemide 20 mg tablet 20 - 40 mg PO DAILY PRN swelling 02/26/24 02/25/24 History loratadine 10 mg tablet 10 mg PO DAILY allergy 02/26/24 02/26/24 History (Allerclear) potassium chloride 20 mEq 10 meq PO DAILY supplement 02/26/24 Unknown History tablet,extended release(part/cryst) spironolactone 25 mg tablet 25 mg PO DAILY blood pressure 02/26/24 02/26/24 History Allergy/AdvReac Type Severity Reaction Status Date / Time No Known Allergies Allergy Unverified 08/29/19 12:56 Family History (Updated 02/26/24 @ 21:[address] Nishi Velásquez MD) Mother CVA (cerebral vascular accident) Hypertension Father Heart disease CAD (coronary artery disease) Myocardial infarction Hypertension Alcohol abuse Surgical History History of tonsillectomy and adenoidectomy History of delivery Social History (Updated 02/26/24 @ 21:[address] Nishi Velásquez MD) household members: none Smoking Status: Never smoker alcohol intake: current alcohol intake frequency: 0-2 drinks per day Alcohol type: hard liquor details: Notes usually 2 (family reports likely more) smirnoff drinks daily. substance use type: does not use ROS ROS Narrative as in HPI and past medical history Physical Exam Narrative Alert and orient x 3, no apparent distress S1, S2, RRR Lungs clear Abdomen soft, nontender No pitting edema Lab / Micro Data 02/29/24 06:06 03/02/24 06:07 Labs: Laboratory Results - last 24 hr 03/02/24 06:07: Sodium 124 L, Potassium 4.5, Chloride 93 L, Carbon Dioxide 25.0, Anion Gap 6, BUN 14, Creatinine 0.84, Estim Creat Clear Calc 47.06, Est GFR (MDRD) Af Amer 84, Est GFR (MDRD) Non-Af 69, BUN/Creatinine Ratio 16.7, Glucose 110 H, Calcium 9.2
--- NOTE | 2024-03-02 13:39 | CASEMGMT ---
Social Work Precert has been obtained for pt to admit to [facility]. Physician updated and pt is not ready for dc today. SW met with pt, dgt and son and updated. All questions answered regarding insurance coverage, SNF stay and rehabilitation. Plan: [facility], when medically ready PAUL Canchola
--- NOTE | 2024-03-02 13:40 | RAD_ITS ---
STUDY: AIR CONTRAST ESOPHAGRAM AND UPPER GI SERIES REASON FOR EXAM: Female, 83 years old. dysphagia FLUOROSCOPY TIME (if supplied): (50 seconds) minutes/seconds. 6.6 mGy.. 65 fluoroscopic images were obtained. TECHNIQUE: SINGLE CONTRAST AND AIR CONTRAST FLUOROSCOPIC IMAGES. COMPARISON: None. FINDINGS: The cervical esophagus demonstrates normal motility without aspiration. There is no stricture or extrinsic mass effect. No intraluminal polypoid mass is identified. The thoracic esophagus distends well without stricture or mucosal fold thickening. No mucosal ulcerations are identified. There is no extrinsic mass effect. There are no diverticula. There is evidence of a small sliding hiatal hernia with gastroesophageal reflux. The stomach distends well without mucosal fold thickening or mucosal ulceration. There is no intraluminal mass. The duodenal bulb is freely distensible without deformity or ulceration. The duodenal sweep is normal in position and caliber. RAD/Upper GI w/BA Swallow IMPRESSION: Small sliding hiatal hernia with gastroesophageal reflux. Electronically Signed: Devon Zendejas MD at 15:18 EDT ,
--- NOTE | 2024-03-02 13:56 | OP.PCM_ITS ---
Report of Operation Date of Procedure: 03/02/24 Pre-Operative Diagnosis: m51.34, m80.0XA Post-Operative Diagnosis: m51.34, m80.0XA Surgery/Procedure Performed:: T7-T8 FAISAL Description of Surgical Findings:: PROCEDURE: Thoracic Epidural Steroid Injection LEVEL: T7-T8 TECHNIQUE: Sterile under fluoroscopy, with loss of resistance ANESTHESIA: IV conscious sedation PRE-OPERATIVE DIAGNOSIS: See patient's problem list below. INFORMED CONSENT: The procedure, risks, benefits and options were discussed with patient. There are no contraindications to the procedure. The patient expressed understanding and agreed to proceed. PROCEDURE TECHNIQUE: The patient was admitted to the preoperative area and time out performed. Vital signs were checked and the patient was moved to the procedure area and placed in the prone position. Standard monitors were applied. Sterile prep and draped performed in a regular manner. The T7-T8 interlaminar space was identified under fluoroscopic guidance. It had better interlaminar opening compared to T8- T9. Local anesthesia was administered using Lidocaine 5cc, to anesthetize the skin and subcutaneous tissue with 25G needle. Next a 21G Touhy needle was inserted under fluoroscopic guidance. Using the loss of resistance technique, the epidural space was identified. Needle position was confirmed on an AP and lateral views as required. Contrast material, Omnipaque 3cc, was injected under fluoroscopic guidance and showed appropriate epidurogram and epidural spread. Negative Blood and CSF aspiration was confirmed. A mixture of 3 ml of bupivacaine and 40 mg of Triamcinilone was injected. The patient tolerated the procedure well. The needle was removed intact. The patient was cleansed and a Band-Aid was placed. DISCHARGE INSTRUCTIONS: The patient was taken to the Recovery Room and discharged when discharge criteria were met in the Recovery Room. Patient is to return to nursing floor. The patient stated understanding and agreement with the above plan. She is to schedule a follow up appointment with Dr. Crowell in 1 month. Surgeon: Hayden Tapia
--- NOTE | 2024-03-02 14:30 | POSTOPAN2_ITS ---
Anesthesia Postop Eval I Sum Postop Eval Completion status Anesthesia document: Postop Eval 1 completed: Yes Anesthesia Postop Eval I Summary Anesthesia Postop Eval I Summary: Anesthesia Postop Eval I: Assessment Summary Airway patent Yes 03/02/24 11:09 ADMINISTRATIVE [email or web address].[email or web address] Spontaneous unlabored Yes 03/02/24 11:09 ADMINISTRATIVE RECEPTIONIST.CSIR respirations Mental status nausea No 03/02/24 11:09 ADMINISTRATIVE RECEPTIONIST.CSIR Vomiting No 03/02/24 11:09 ADMINISTRATIVE RECEPTIONIST.CSIR Anesthesia Postop Eval I: Fluid Summary Crystalloid volume administer 100 03/02/24 11:09 ADMINISTRATIVE RECEPTIONIST.CSIR (ml) Colloids volume administered ( ml) Blood Product volume administered (ml) Total IV fluid infused 100 03/02/24 11:09 ADMINISTRATIVE RECEPTIONIST.CSIR Anesthesia Postop Eval I: Summary Notes Anesthesia Complication No 03/02/24 11:09 ADMINISTRATIVE RECEPTIONIST.CSIR Anesthesia Complication Comment: Post-operative progress note Anesthesia: Postop Eval II Evaluation Mental status: Awake and Calm Pain Level: 1 nausea: No Vomiting: No Complications Anesthesia Complication: No
--- NOTE | 2024-03-02 14:30 | PCM.POSTANE2 ---
Anesthesia Postop Eval I Sum Postop Eval Completion status Anesthesia document: Postop Eval 1 completed: Yes Anesthesia Postop Eval I Summary Anesthesia Postop Eval I Summary: Anesthesia Postop Eval I: Assessment Summary Airway patent Yes 03/02/24 11:09 [email or web address] Spontaneous unlabored Yes 03/02/24 11:09 [email or web address] [email or web address].CSIR respirations Mental status nausea No 03/02/24 11:09 [email or web address].CSIR Vomiting No 03/02/24 11:09 [email or web address].CSIR Anesthesia Postop Eval I: Fluid Summary Crystalloid volume administer 100 03/02/24 11:09 [email or web address].CSIR (ml) Colloids volume administered ( ml) Blood Product volume administered (ml) Total IV fluid infused 100 03/02/24 11:09 [email or web address].CSIR Anesthesia Postop Eval I: Summary Notes Anesthesia Complication No 03/02/24 11:09 [email or web address].[email or web address] Anesthesia Complication Comment: Post-operative progress note Anesthesia: Postop Eval II Evaluation Mental status: Awake and Calm Pain Level: 1 nausea: No Vomiting: No Complications Anesthesia Complication: No
[2024-03-02] MEDS: Furosemide 20 MG Tablet PO (14:57)
[2024-03-02] MEDS: Loratadine 10 MG Tablet PO (14:57)
[2024-03-02] MEDS: Famotidine 20 MG Tablet PO (14:57)
[2024-03-02] MEDS: Multivitamins,Ther W-Minerals Tablet 1 TABLET PO (14:58)
[2024-03-02] MEDS: Gabapentin 100 MG Capsule PO (14:58)
[2024-03-02] MEDS: Folic Acid 1 MG Tablet PO ×2 (14:58)
[2024-03-02] MEDS: Spironolactone 25 MG Tablet PO (14:58)
[2024-03-02] MEDS: Thiamine Hydrochloride 100 MG Tablet PO (14:58)
[2024-03-02] MEDS: Lidocaine 5% Patch 1 PATCH TOPICAL (14:59)
[2024-03-02] MEDS: Senna/Docusate Sodium 1 Tablet 2 TABLET PO (15:00)
[2024-03-02] MEDS: Sodium Chloride 1 GM Tablet PO (15:00)
--- NOTE | 2024-03-02 16:01 | PCM.TXEXTCAR ---
Diet Diet Order/Speech Therapy: 03/02/24 15:05 Diet: Cardiac - Heart Healthy Fluid restriction:: 1500 mL/day Routine Orders/Code Status Routine Lab Work: BMP (on 03/06/24) Code Status: Full Code Wound(s) Right Wrist: Wound Type: Skin Tear mid back: Wound Type: puncture site Therapies Weight Bearing: Full weight bearing Physical Therapy: Eval and Treat Occupational Therapy: Eval and Treat Problem/Diagnosis (1) Hyponatremia: Status: Chronic Code(s): E87.1 - Hypo-osmolality and hyponatremia Plan: fluid restriction, Sodium chloride pills (2) Compression fracture of T7 vertebra: Status: Acute Code(s): S22.060A - Wedge compression fracture of T7-T8 vertebra, initial encounter for closed fracture Allergies/Procedures Done in Hospital Allergies No Known Allergies Allergy (Unverified 08/29/19 12:56) Procedures: - (epidural injection T7-T8 03/02/24) Type of Care/Length of Stay Estimated LOS: Convalescent Care Less Than 30 days Type of Care Needed: Skilled Rehab Potential: Good Prognosis: Good Additional Orders/Day of Discharge Day of Discharge: 03/02/24 Dietary and Speech Recommendations Dietitian Recommendations/Changes: Continue Cardiac diet with fluid restriction per MD. RD will order 120mL Ensure Plus High Protein BID with medpass to provide supplemental energy. Discharge Plan Admission Admit Date/Time: 02/26/24 20:36 Primary Reason for Your Visit: T7 compression fracture Attending Provider: Colin Jones Primary Care Provider: Angelina Harp Consulting Providers: Rodriguez Wood; Nishi Velásquez; Ave Crowe; Maegan Crowell; Yuliana Sánchez; Bradley Lundy Discharge Orders/Prescriptions Prescriptions: New acetaminophen 500 mg Tablet 1,000 mg PO Q8 Qty: 0 0RF gabapentin 100 mg Capsule 100 mg PO BIDCM Qty: 1 0RF nystatin [Nyamyc] 100,000 unit/gram Powder 1 applic topical BID Qty: 0 0RF Protocol: *Topical Application Instructions APPLICATION INSTRUCTIONS: ABD FOLDS oxycodone 5 mg Tablet 5 mg PO Q4H PRN PRN (Reason: Pain Score 4-10) 2 Days Qty: 6 0RF sennosides-docusate sodium [Stimulant Laxative Plus] 8.6-50 mg Tablet 2 tab PO BID PRN PRN (Reason: Constipation) Qty: 0 0RF sodium chloride 1,000 mg Tablet,Soluble 1,000 mg PO TID Qty: 0 0RF Continued spironolactone 25 mg tablet 25 mg PO DAILY atenolol 25 mg tablet 12.5 mg PO DAILY Patient Comments: takes in evening cholecalciferol (vitamin D3) 1 tab PO DAILY Patient Comments: 1,000 units famotidine [Acid Controller] 20 mg tablet 20 mg PO DAILY loratadine [Allerclear] 10 mg tablet 10 mg PO DAILY Discontinued potassium chloride 20 mEq tablet,ER particles/crystals 10 meq PO DAILY furosemide 20 mg tablet 20 - 40 mg PO DAILY PRN (Reason: swelling) acetaminophen-codeine 300-30 mg tablet 1 tab PO Q6H PRN PRN (Reason: right knee pain) flaxseed oil PO DAILY Referrals / Follow Up: Maegan Crowell MD [Med Staff - Active Staff] - 03/23/24 11:00 am Angelina Harp MD [Primary Care Provider] - Yuliana Sánchez MD [Med Staff - Consulting] - See Referral Note (contact office for follow up appointment) Disposition Disposition (needs filled in before D/C Order can be placed): Nursing Home Facility (2) Compression fracture of T7 vertebra Qualifiers: Encounter type: initial encounter Qualified Code(s): S22.060A - Wedge compression fracture of T7-T8 vertebra, initial encounter for closed fracture
--- NOTE | 2024-03-02 16:19 | PCM.DC.SUM ---
Providers Date of Admission: 02/26/24 Date of Discharge: 03/02/24 Primary Care Physician: Dr. Angelina Harp MD Consultations 02/26/24 21:25 Consult: Orthopedics Routine Consulting Provider: Rodriguez Wood Reason for Consult: Comp fx T8 EMERGENT Consult: No Notified: Yes Date Notified: 02/26/24 Time Notified: 20:39 Method of Notification: Text 02/29/24 11:11 Consult: Pain Management Routine Consulting Provider: Maegan Crowell Reason for Consult: acute T7 compress fx, chronic T8 fx, no ortho surg now, pain limiting PT EMERGENT Consult: No MD Notified: Yes Date Notified: 02/29/24 Time Notified: 12:45 Method of Notification: office 03/01/24 16:02 Consult: Nephrology Routine Consulting Provider: Yuliana Sánchez Reason for Consult: Acute on chronic hyponatremia EMERGENT Consult: No MD Notified: Yes Date Notified: 03/01/24 Time Notified: 16:02 Method of Notification: Answering Service Reason For Visit: FALL BACK PAIN T8 COMB FX Diagnosis Discharge Diagnosis (1) Hyponatremia: Status: Chronic Code(s): E87.1 - Hypo-osmolality and hyponatremia Plan: fluid restriction, Sodium chloride pills (2) Compression fracture of T7 vertebra: Status: Acute Code(s): S22.060A - Wedge compression fracture of T7-T8 vertebra, initial encounter for closed fracture Qualifiers: Encounter type: initial encounter Qualified Code(s): S22.060A - Wedge compression fracture of T7-T8 vertebra, initial encounter for closed fracture Plan 1. Acute compression fracture of T7 secondary to osteoporosis #2 hyponatremia-etiology unclear #3 acute debility #4 essential hypertension Medications at Discharge Home Medications atenolol 25 mg tablet 12.5 mg PO DAILY blood pressure 02/26/24 cholecalciferol (vitamin D3) 1 tab PO DAILY supplement 02/26/24 famotidine 20 mg tablet (Acid Controller) 20 mg PO DAILY 02/26/24 loratadine 10 mg tablet (Allerclear) 10 mg PO DAILY allergy 02/26/24 spironolactone 25 mg tablet 25 mg PO DAILY blood pressure 02/26/24 acetaminophen 500 mg tablet 1,000 mg (2 x 500 mg) PO Q8 #0 tabs 08/15/24 gabapentin 100 mg capsule 100 mg PO BIDCM #1 cap 03/02/24 nystatin 100,000 unit/gram topical powder (Nyamyc) 1 applic topical BID #0 grams 03/02/24 oxycodone 5 mg tablet 5 mg PO Q4H PRN PRN Pain Score 4-10 2 days #6 tabs 03/02/24 sennosides 8.6 mg-docusate sodium 50 mg tablet (Stimulant Laxative Plus) 2 tab PO BID PRN PRN Constipation #0 tabs 03/02/24 sodium chloride 1,000 mg soluble tablet 1,000 mg PO TID #0 tabs 03/02/24 Hospital Course Operations None Procedures - (Thoracic epidural steroid injection) Summary of Care Provided Minutes Spent on Discharge: 33 Hospital Course: This 83-year-old white female was seen in the emergency room at [facility] after sustaining a fall at home, she had tripped on her way back into the house from her deck and fell. Patient stated she landed in a sitting position, she complained of pain in her mid back area. Imaging studies were performed in the emergency room, CT of thoracic spine demonstrated what appeared to be an acute T8 compression fracture with mild spinal stenosis. 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 Patient was admitted to [place] [address], she was seen in consultation by orthopedic surgery and pain management. PT and OT saw the patient, patient underwent an MRI of her thoracic spine which showed an acute mild compression fracture of T7 and a chronic severe compression fracture of T8. Patient underwent an epidural steroid injection in the thoracic spine, it was felt she would benefit from short-term placement in a long-term facility for short-term rehab services. On 03/02/2024, patient was seen and examined: On examination she appeared in good health and spirits, she does not appear to be in any distress. Vital signs as documented. Skin warm and dry and without overt rashes. Neck without JVD, thyroid appears normal, trachea is midline, neck is supple. Lungs clear, normal air movement was noted. Heart exam notable for regular rhythm, normal sounds and absence of murmurs, rubs or gallops. Abdomen unremarkable and without evidence of organomegaly, masses, or abdominal aortic enlargement, bowel sounds are present in all 4 quadrants, no abdominal tenderness was noted. Extremities nonedematous, no cyanosis was noted, no clubbing was noted. Neuro: Cranial nerves II through XII are grossly intact, no focal motor deficits were noted, sensation to light touch and pinprick is intact, motor exam 5/5 throughout. Psych: Patient is alert and oriented x3, she does not appear anxious or depressed, she does not appear agitated. On 03/02/2024, patient was discharged to a long-term facility in stable condition. Weight / BMI Weight Weight: 77.8 kg Body Mass Index (BMI) 32.3 ABG / Lab / Microbiology Data 02/29/24 06:06 03/02/24 06:07 Laboratory: Laboratory Results - last 24 hr 03/02/24 06:07: Sodium 124 L, Potassium 4.5, Chloride 93 L, Carbon Dioxide 25.0, Anion Gap 6, BUN 14, Creatinine 0.84, Estim Creat Clear Calc 47.06, Est GFR (MDRD) Af Amer 84, Est GFR (MDRD) Non-Af 69, BUN/Creatinine Ratio 16.7, Glucose 110 H, Calcium 9.2 Radiography Diagnostic Testing: Radiology Impression Spine X-Ray 03/02/24 10:40 IMPRESSION: Intraprocedural exam as described above. Electronically Signed: Alex Sharpe MD at 13:11 EDT , Upper GI/Barium Swallow X-Ray 03/02/24 13:40 IMPRESSION: Small sliding hiatal hernia with gastroesophageal reflux. Electronically Signed: Devon Zendejas MD at 15:18 EDT , Meaningful Use Info Meaningful Use Meaningful Use Diagnoses (Choose all that apply): None applicable Ischemic Stroke Statin Dosing Therapy Reference: STATIN DOSE THERAPY REFERENCE: * Patients > 75 years receive moderate or high dose statin therapy. * Patients 75 years or YOUNGER should receive HIGH intensity statin dose unless contraindicated. You will be required to document reason for non-treatment if statin daily dose does not meet guidelines. HIGH DOSE STATIN THERAPY DAILY Atorvastatin > than or = to 40 mg Rosuvastatin > than or = to 20 mg Amlodipine + Atorvastatin > than or = to 2.5/40 mg Ezetimibe + Simvastatin 10/80 mg Simvastatin 80mg Discharge Plan Admission Admit Date/Time: 02/26/24 20:36 Primary Reason for Your Visit: T7 compression fracture Attending Provider: Colin Jones Primary Care Provider: Angelina Harp Consulting Providers: Rodriguez Wood; Nishi Velásquez; Ave Crowe; Maegan Crowell; Yuliana Sánchez; Bradley Lundy Discharge Orders/Prescriptions Prescriptions: New acetaminophen 500 mg Tablet 1,000 mg PO Q8 Qty: 0 0RF gabapentin 100 mg Capsule 100 mg PO BIDCM Qty: 1 0RF nystatin [Nyamyc] 100,000 unit/gram Powder 1 applic topical BID Qty: 0 0RF Protocol: *Topical Application Instructions APPLICATION INSTRUCTIONS: ABD FOLDS oxycodone 5 mg Tablet 5 mg PO Q4H PRN PRN (Reason: Pain Score 4-10) 2 Days Qty: 6 0RF sennosides-docusate sodium [Stimulant Laxative Plus] 8.6-50 mg Tablet 2 tab PO BID PRN PRN (Reason: Constipation) Qty: 0 0RF sodium chloride 1,000 mg Tablet,Soluble 1,000 mg PO TID Qty: 0 0RF Continued spironolactone 25 mg tablet 25 mg PO DAILY atenolol 25 mg tablet 12.5 mg PO DAILY Patient Comments: takes in evening cholecalciferol (vitamin D3) 1 tab PO DAILY Patient Comments: 1,000 units famotidine [Acid Controller] 20 mg tablet 20 mg PO DAILY loratadine [Allerclear] 10 mg tablet 10 mg PO DAILY Discontinued potassium chloride 20 mEq tablet,ER particles/crystals 10 meq PO DAILY furosemide 20 mg tablet 20 - 40 mg PO DAILY PRN (Reason: swelling) acetaminophen-codeine 300-30 mg tablet 1 tab PO Q6H PRN PRN (Reason: right knee pain) flaxseed oil PO DAILY Referrals / Follow Up: Maegan Crowell MD [Med Staff - Active Staff] - 03/23/24 11:00 am Angelina Harp MD [Primary Care Provider] - Yuliana Sánchez MD [Med Staff - Consulting] - See Referral Note (contact office for follow up appointment) Disposition Disposition (needs filled in before D/C Order can be placed): [facility] Facility Charges/Coding Visit Charges Inpatient E&M: 49814 Disch Hosp >30min
--- NOTE | 2024-03-02 16:25 | CASEMGMT ---
Social Work Per physician, pt is now ready for discharge to [facility]. 7000 exemption form completed in [facility]. SW spoke with pt and pt's son and son plans to transport pt to [facility]. RELL Gutierrez pharmacist assistant to notify [facility] of dc and send dc orders. Disposition: [facility], skilled level of care under convalescent stay PAUL Carmona
--- NOTE | 2024-03-02 16:37 | CASEMGMT ---
Discharge Planning Discharge orders, signed med list, and transport time sent to [facility] via [employer]. Pts son will transport after dinner. Nursing updated. Brenda Henning DC Planning Asst.
== END 2024-03-02 17:38 | disposition skilled nursing facility (03) | DRG 543 ==
LOC: ED 20:33 → MS3 20:54
PROVIDERS: Anesthesiology; Hospitalist; Admitting Provider Family Medicine; Emergency Provider Emergency Medicine; PCP Family Medicine; Visit Provider Internal Medicine
PROC: 3E0S3BZ Introduction of Anesthetic Agent into Epidural Space, Percutaneous Approach (ICD-10-PCS; principal; 2024-03-02 10:10)
DX: M80.08XA Age-related osteoporosis with current pathological fracture, vertebra(e), initial encounter for fracture (principal); E87.1 Hypo-osmolality and hyponatremia; I10 Essential (primary) hypertension; F10.10 Alcohol abuse, uncomplicated; M35.00 Sjogren syndrome, unspecified; E66.9 Obesity, unspecified; M48.04 Spinal stenosis, thoracic region; K21.9 Gastro-esophageal reflux disease without esophagitis; M79.7 Fibromyalgia; J30.9 Allergic rhinitis, unspecified; W18.09XA Striking against other object with subsequent fall, initial encounter; M51.36 Other intervertebral disc degeneration, lumbar region; E86.0 Dehydration; G89.29 Other chronic pain; R13.10 Dysphagia, unspecified; Y92.009 Unspecified place in unspecified non-institutional (private) residence as the place of occurrence of the external cause; R53.81 Other malaise; Z68.32 Body mass index [BMI] 32.0-32.9, adult; Z79.899 Other long term (current) drug therapy
CPT/HCPCS: 36415; 64490; 70450; 72020; 72125; 72128; 72131; 72146; 74246; 80048; 80053; 80076; 81001; 82077; 83735; 83930; 83935; 84100; 84145; 84300; 85025; 85027; 92610; 94668; 97116; 97162; 97165; 97530; 97535; 99284; J7030; J7120; A4216; J2405; J3490

== ENCOUNTER 2024-03-14 11:59 | Day surgery (SDC) | payer MEDICARE, SELFPAY ==
[2024-03-14] VITALS (8 sets, daily range): BP systolic 146–162; BP diastolic 69–84; PULSE 70–92; RESP 16–18; TEMP 36.2–36.7; O2SAT 96–100; BMI 31.2
--- NOTE | 2024-03-14 12:46 | PCM.HP.BLA ---
History and Physical MR#: [id number] Acct: [id number] Name: MANUEL WALLER Rep #: [id number] : 1940 Provider: Dr. Rodriguez Wood MD Age/Sex: 83/F [place] [facility] [place] Status: Signed Intake Vital Signs 03/02/2408:32 Height 5 ft 1 in Intake Visit Reasons: THORASIC SPINE Accompanied by: Son Is patient in pain?: Yes Pain scale (1-10): 2 Allergies No Known Allergies Allergy (Unverified 03/10/24 09:08) Medications ?Medication ?Instructions ?Recorded ?Confirmed ?Type atenolol 25 mg tablet 12.5 mg PO DAILY blood pressure 02/26/24 03/10/24 History cholecalciferol (vitamin D3) 1 tab PO DAILY supplement 02/26/24 03/10/24 History famotidine 20 mg tablet (Acid 20 mg PO DAILY 02/26/24 03/10/24 History Controller) loratadine 10 mg tablet 10 mg PO DAILY allergy 02/26/24 03/10/24 History (Allerclear) spironolactone 25 mg tablet 25 mg PO DAILY blood pressure 02/26/24 03/10/24 History acetaminophen 500 mg tablet 1,000 mg (2 x 500 mg) PO Q8 #0 tabs 03/02/24 03/10/24 Rx gabapentin 100 mg capsule 100 mg PO BIDCM #1 cap 03/02/24 03/10/24 Rx nystatin 100,000 unit/gram topical 1 applic topical BID #0 grams 03/02/24 03/10/24 Rx powder (Nyamyc) oxycodone 5 mg tablet 5 mg PO Q4H PRN PRN Pain Score 03/02/24 03/10/24 Rx 4-10 2 days #6 tabs sennosides 8.6 mg-docusate sodium 2 tab PO BID PRN PRN Constipation 03/02/24 03/10/24 Rx 50 mg tablet (Stimulant Laxative #0 tabs Plus) sodium chloride 1,000 mg soluble 1,000 mg PO TID #0 tabs 03/02/24 03/10/24 Rx tablet folic acid 1 mg tablet 1 mg PO DAILY 03/10/24 03/10/24 History Have you fallen in the past year?: Yes PFSH Medical History Dysphagia Fall Compression fracture of T8 vertebra Obesity Allergic rhinitis GERD (gastroesophageal reflux disease) Sjogrens syndrome Fibromyalgia HTN (hypertension) Surgical History History of tonsillectomy and adenoidectomy History of delivery Family History Mother CVA (cerebral vascular accident) HypertensionFather Heart disease CAD (coronary artery disease) Myocardial infarction Hypertension Alcohol abuse Social History household members: none Smoking Status: Never smoker alcohol intake: current alcohol intake frequency: 0-2 drinks per day Alcohol type: hard liquor details: Notes usually 2 (family reports likely more) smirnoff drinks daily. substance use type: does not use HPI THORASIC SPINE Details: This documentation accurately reflects the service provided and the decisions made by me, Dr. Rodriguez Wood MD 03/10/24 0904. Part of today?s visit was documented by Estrella BIRMINGHAM acting as scribe. MANUEL WALLER is a 83 year old F here today for Thoracic pain. Patient had a fall on 02/25. Patient states she lost her balance. Patient states she fell straight down on her bottom. Patient went to the ER and she was told that she Fractured her T7. Patient got a Thoracic Epidural Steroid Injection on 03/02/[address] Tapia. Patient states the shot was good. Patient states that she can move just fine and she feels great. She has been twisting since the injury without pain. Patient has a high pain level and times she feels the pain her BP is through the roof. Patient states wearing a bra is uncomfortable for her because of the tightness and the squeezing of it. Coughing also causes some discomfort in the middle of her back. She is walking with her walker at home. Denies any worsening of her balance since her fall. Ortho Exam General General: Yes no acute distress Neurologic: Yes alert and Yes oriented x3 Spine SPINE TESTING CERVICAL THORACIC LUMBAR Musculoskeletal Strength 0=absent - 5=normal Details: Neurological exam of the lower extremities shows 5x5 power. Normal sensations across all dermatomes. Midline tenderness in mid thoracic area, no paraspinal tenderness. Coding Level of Care Code Off vis,est,level 4 Diagnoses Compression fracture of T7 vertebra with delayed healing, subsequent encounter S22.060G Encounter type: subsequent encounter Fracture healing: with delayed healing Time Spent (min) 35 Assessment and Plan Assessment and Plan (1) Compression fracture of T7 vertebra: Status: Acute Qualifiers: Encounter type: subsequent encounter Fracture healing: with delayed healing Qualified Code(s): S22.060G - Wedge compression fracture of T7-T8 vertebra, subsequent encounter for fracture with delayed healing Orders: Orders Thoracic Spine 2 Views Today S22.060A - Wedge compression fracture of T7-T8 vertebra, initial encounter for closed fracture Plan Obtained and reviewed xrays today with the patient. Also reviewed prior CT and MRI. CT and MRI from during her admission about 2 weeks ago showed only minimal height loss at the new acute T7 compression fracture. The T8 compression deformity is likely an old healed fracture. The new x-ray which was upright done today shows additional height loss at the new T7 compression fracture suggesting further collapse. I explained to her the imaging findings in detail. Patient has shown significant collapse of her new acute T7 compression fracture over the last 2 weeks. She has significant pain with midline tenderness. I recommend options treatment which include continued nonoperative treat measures versus cement augmentation with spine cindy versus kyphoplasty. Discussed in detail the procedure. Discussed risk and benefits of the procedure such as infection, bleeding, pulmonary embolism, other vertebrae may fracture in the future, other back pain, anesthesia complications. Patient agrees to proceed with this procedure. We will schedule this procedure early next week. Patient was in agreement.
--- NOTE | 2024-03-14 13:15 | RAD_ITS ---
PROCEDURE: Kyphoplasty of T7. DATE OF EXAMINATION: March 14, 2024. INDICATION: Female, 83 years old. Compression fracture. FLUOROSCOPY TIME (if supplied): (1 minute and 45 seconds) minutes/seconds. 28.35 mCi. 6 images were submitted. RAD/Spine 1 View Any Level IMPRESSION: Intraoperative fluoroscopic imaging provided for kyphoplasty of the T7 vertebrae. Electronically Signed: Devon Zendejas MD at 15:18 EDT ,
--- NOTE | 2024-03-14 13:16 | PCM.PRE.AN2 ---
ASA Classification* ASA Classification ASA Classification: 3 Assessment & Plan Anesthesia* Anesthesia Assessment Anesthesia Assessment: Discussed sedation and/or anesthesia options, risks, benefits, and alternatives with patient/parents/legal guardian/POA. Questions invited. The patient/parents/legal guardian/POA seems to understand and agrees to proceed with anesthesia plan. Reviewed the physical assessment, medical history, allergy history and patient home medications list prior to surgery/procedure/anesthetic and documented any changes. Performed airway and anesthesia risk assessments. Anesthesia Type Anesthesia Type: MAC History Source History Obtained from:: Patient and Chart Anesthesia Focused Assessment* Temperature: 97.7 F Pulse Rate: 74 Blood Pressure: 148/69 Respiratory Rate: 16 Pulse Ox: 98 Oxygen Delivery Method: Room Air Airway Assessment Mouth opens: >3 cm Mallampati Score: II Teeth Condition: Missing (Missing multiple teeth. Rest are tight) Neck Range of motion (ROM): Full ROM Pertinent Findings ECHO Pertinent Findings:: January 06, 2023 ejection fraction 65%. Right ventricular systolic pressure is 49 mmHg. Other Pertinent Findings:: Holter done on February 19, 2020. Normal sinus rhythm over 48 hours. Focused Labs Anesthesia Preop lab: CBC WBC 8.3 K/mm3 (4.4-11.0) 03/10/24 04:40 RBC 3.74 M/mm3 (4.2-5.4) L 03/10/24 04:40 Hgb 12.8 g/dL (12.0-15.0) 03/10/24 04:40 Hct 38.6 % (37-47) 03/10/24 04:40 Plt Count 261 K/mm3 (150-450) 03/10/24 04:40 CHEMISTRY Potassium 4.3 mmol/L (3.5-5.1) 03/10/24 04:40 Sodium 131 mmol/L (136-145) L 03/10/24 04:40 Magnesium 1.7 mg/dL (1.6-2.6) 02/26/24 20:58 Phosphorus 2.9 mg/dL (2.5-4.9) 02/26/24 20:58 BUN 16 mg/dL (7-18) 03/10/24 04:40 Creatinine 0.81 mg/dL (0.55-1.02) 03/10/24 04:40 Glucose 97 mg/dL (74-106) 03/10/24 04:40 TSH 1.66 uIU/mL (0.358-3.74) 01/17/24 13:14 COAG Pre-Assessment Diagnosis/Proposed Procedure Planned Operative Procedure(s): KYPHOPLASTY T7 SPINE HUMZA CEMENT Anesthesia History Anesthesia History - haircutter: Anesthesia History - haircutter Hx Hospitalization Yes: 02/2024 HAD FALL AND FX 03/13/24 08:30 T7 Any Problems With Anesthesia No 03/13/24 08:30 Cholinesterase deficiency No 03/13/24 08:30 You/Your Family Experience No 03/13/24 08:30 fever (hyperthermia) with Relationship Recent Exposure to Contagious No 03/14/24 12:51 Disease Does patient have nerve No 03/13/24 08:30 stimulator Patient instructed to have device shut off --Does patient have Pacemaker No 03/14/24 12:51 or ICD? When Was Last Pacemaker Check QUESTION #4 FULL TEXT: You/Your Family Experience fever (hyperthermia) with Anesthesia Last Oral Intake Last Oral intake: Last Oral Intake NPO since 08:00 03/14/24 12:51 Meds taken in AM with sips of Yes 03/14/24 12:51 water? Meds patient instructed to TYLENOL 03/14/24 12:51 take am of surgery PONV PONV - haircutter: PONV - haircutter Female Yes 03/13/24 08:30 HX of Motion Sickness Yes 03/13/24 08:30 HX of N/V After Surgery No 03/13/24 08:30 Non-Smoker Yes 03/13/24 08:30 Duration of Surgery greater Yes 03/13/24 08:30 than 60 minutes Number of Risk Factors 4 03/13/24 08:30 PONV Score Severe Risk 03/13/24 08:30 Height & Weight Height & Weight: Anesthesia: Height & Weight Height 5 ft 1 in 03/14/24 12:51 Weight: 75 kg 03/14/24 12:51 Body Mass Index (BMI) 31.2 03/14/24 12:51 Respiratory Assessment Respiratory Assessment - haircutter: Respiratory Tract Infection Hx - haircutter Hx Respiratory Tract Infection No 03/13/24 08:30 STOP Sleep Apnea STOP Sleep Apnea - haircutter: STOP Sleep Apnea - haircutter Hx Hypertension Yes: CONTROLLED WITH MED 03/13/24 08:30 Hx Sleep Apnea No 03/13/24 08:30 CPAP BIPAP Do you snore loudly (louder No 03/13/24 08:30 than talking or can be heard Do you often feel tired/ No 03/13/24 08:30 fatigued/ sleepy during daytime? Has anyone observed you stop No 03/13/24 08:30 breathing during sleep? STOP Results Negative 03/13/24 08:30 QUESTION #5 FULL TEXT : Do you snore loudly (louder than talking or can be heard through closed doors)? 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 Specify any problems Hx of Preganancy in last 3 No 03/13/24 08:30 Months Nurse Filling Out Transfusion DSCHRIBER 03/13/24 08:30 & Questions: Date: 03/13/24 03/13/24 08:30 Time: 08:33 03/13/24 08:30 Patient unable to answer at this time (ie. confused, unrespo /Reproduction History /Reproductive History - haircutter: /Reproductive Hx- haircutter Hx Now No 03/13/24 08:30 Gestational Age (in weeks): EDC: Hx Hx Para Hx Section SAB No 03/13/24 08:30 Active Medications Active Medications: Current Medications Generic Name Dose Route Start Last Admin Trade Name Freq PRN Reason Stop Dose Admin Cefazolin Sodium 2 gm/ Sodium 110 mls @ 150 mls/hr 03/14/24 14:15 Chloride IV 03/14/24 14:58 PREOP ONE Lactated Ringer's 1,000 mls @ 15 mls/hr 03/14/24 12:15 IV .Q48H BROOKE PFSH Medical History Lives in prison Wears hearing aid Wears glasses Post-menopausal Skin tear History of steroid therapy Arthritis Walker as ambulation aid Easy bruising Back pain Injury of back Balance problem History of hiatal hernia Non-smoker History of edema History of Holter monitoring History of echocardiogram Fragile skin Dysphagia Obesity GERD (gastroesophageal reflux disease) Sjogrens syndrome Fibromyalgia HTN (hypertension) Fall Compression fracture of T8 vertebra Home Medications ?Medication ?Instructions ?Recorded ?Last Taken ?Type atenolol 25 mg tablet 12.5 mg PO QHS blood pressure 02/26/24 03/13/24 History famotidine 20 mg tablet (Acid 20 mg PO DAILY 02/26/24 03/13/24 History Controller) loratadine 10 mg tablet 10 mg PO DAILY allergy 02/26/24 03/13/24 History (Allerclear) spironolactone 25 mg tablet 25 mg PO DAILY blood pressure 02/26/24 03/13/24 History acetaminophen 500 mg tablet 1,000 mg (2 x 500 mg) PO Q8 #0 tabs 03/02/24 03/14/24 Rx gabapentin 100 mg capsule 100 mg PO BIDCM #1 cap 03/02/24 03/13/24 Rx nystatin 100,000 unit/gram topical 1 applic topical BID #0 grams 03/02/24 Unknown Rx powder (Nyamyc) oxycodone 5 mg tablet 5 mg PO Q4H PRN PRN Pain Score 03/02/24 Unknown Rx 4-10 2 days #6 tabs sennosides 8.6 mg-docusate sodium 2 tab PO BID PRN PRN Constipation 03/02/24 Unknown Rx 50 mg tablet (Stimulant Laxative #0 tabs Plus) sodium chloride 1,000 mg soluble 1,000 mg PO TID #0 tabs 03/02/24 03/13/24 Rx tablet folic acid 1 mg tablet 1 mg PO DAILY 03/10/24 03/13/24 History cholecalciferol (vitamin D3) 25 25 mcg PO DAILY 03/13/24 03/13/24 History mcg (1,000 unit) capsule (Vitamin D3) lidocaine 4 % topical patch 1 patch topical DAILY 03/13/24 Unknown History (Aspercreme (lidocaine)) nut tx, lact-reduced, iron 0.09 100 ml PO BID 03/13/24 03/13/24 History gram-2.25 kcal/mL oral liquid (Boost [facility]) Allergy/AdvReac Type Severity Reaction Status Date / Time No Known Allergies Allergy Verified 03/14/24 12:58 Family History Mother CVA (cerebral vascular accident) Hypertension Father Heart disease CAD (coronary artery disease) Myocardial infarction Hypertension Alcohol abuse Surgical History (Updated 03/14/24 @ 13:[address] Momo Everett MD) S/P dilatation and curettage History of tonsillectomy and adenoidectomy Social History household members: none Smoking Status: Never smoker alcohol intake: current alcohol intake frequency: 0-2 drinks per day Alcohol type: hard liquor details: Notes usually 2 (family reports likely more) smirnoff drinks daily. substance use type: does not use Review of Systems (Anesthesia) ROS Narrative System reviewed and no additional complaints, except as documented.
[2024-03-14] MEDS: Cefazolin 2 GM in 0.9% Normal Saline (100mL Bag) 100 ML IV (13:50)
[2024-03-14 14:12] LABS: HIV - WCH Non-Reactive (Nonreactive); Hepatitis B Surface Antibody Non-Reactive; Hepatitis C Antibody Non-Reactive (Nonreactive)
--- NOTE | 2024-03-14 14:15 | BONBX_PTH ---
PATIENT: MANUEL WALLER LOC: [facility] – [place] U#:[id number] AGE/SX: 83/F ROOM: RE03/14/[address]: Dr. Rodriguez Wood MD : 1940 BED: DIS: 03/14/2024 SPEC #: [id number] RECD: 03/14/24 18:11 STATUS: GILDA LEON #: [id number] PATT: 03/14/24 14:[address]: Rodriguez Wood DEPT: SURGICAL PATHOLOGY RECD BY: Ofelia Chapman ENTERED: 03/15/24 11:38 SP TYPE: Bone OTHR DR: Dr. Angelina Harp MD Tissues: Vertebra, NOS Procedures: Decalcification bone/plaque Surgery Specimen Level V HEADER OPERATION: Kyphoplasty, T7 PRE-OP DIAGNOSIS: Compression fracture of T7 vertebra TISSUE SUBMITTED: T7 vertebral body biopsy MICROSCOPIC DIAGNOSIS T7 vertebral body, bone biopsy: Rare benign bone marrow elements. Blood clots. AM.mr 03/16/2024 MICROSCOPIC DESCRIPTION Slides are reviewed. GROSS DESCRIPTION Received in fixative is one container labeled with the patient's name and designated T7 vertebral body biopsy. The specimen consists of multiple fragments of blood clots mixed with fragments of bone measuring in aggregate 2.0 x 2.0 x 0.1cm. The entire specimen is submitted in one cassette after decalcification. 03/15/2024 TC:5 CPT:46299,51265
[2024-03-14] MEDS: Lidocaine 1% (20 ml mdv) 20 ML Vial (14:50)
[2024-03-14] MEDS: Bupivacaine 0.25% 30 ML Vial (14:51)
--- NOTE | 2024-03-14 14:56 | OP.PCM_ITS ---
Report of Operation Date of Procedure: 03/14/24 Description of Surgical Findings:: ATTENDING SURGEON: Rodriguez Wood MD COMMUNICATIONS STATION MANAGER: none PREOPERATIVE DIAGNOSIS: T7 compression fracture POSTOPERATIVE DIAGNOSIS: T7 compression fracture PROCEDURE PERFORMED: T7 kyphoplasty CPT 47989 INDICATIONS FOR THE PROCEDURE: The patient is a 83-year-old lady, who presents with back pain after an injury. Imaging showed T7 compression fracture with osteopenia. Prior well-healed T8 compression deformity also noticed which is at least 3 years old. Acuity of T7 fracture as well as chronic healed nature of T8 fracture was confirmed with MRI. After failing conservative management, the patient requested cement augmentation with kyphoplasty. Risk benefits were discussed in detail. The risks include but are not limited to infection, bleeding, hematoma formation, nerve or spinal cord injury, DVT, pulmonary embolism, cement embolism, hypertension, cardiac arrest, persistent pain, need for further procedures, cement extravasation, future insufficiency fractures. After a discussion of the risks and benefits of the procedure, consent was signed for the procedure. DETAILS OF PROCEDURE: Patient was met in the preoperative holding area and the correct site was marked. The patient was brought back to the operative suite. Timeout was performed. Patient was carefully positioned flat Jose table with pillows. MAC anesthesia sedation was performed. Back was prepped and draped in usual fashion. Timeout was again performed. C-arm AP and lateral view was then taken. 2 C-arms were positioned in a way that T7 was centralized and superior endplate was parallel to the beams. Spinous process was centered between the pedicles. Point of entry was marked with skin marker. local anesthetic was injected subcutaneously. Small stab incision was placed to allow Jamshidi needle. The Jamshidi needle was then taken down up to the lateral edge of the pedicle seen on AP view and confirmed the lateral view. Jamshidi needle was then malleted into the bone up to the medial wall of the pedicle seen on AP view and confirmed on lateral view to be inside the body. This was then advanced to the anterior third of the vertebral bodies. This was done on both sides. Stylette was removed. Core biopsy was performed. Drill was utilized up to balloon size. Balloon was inserted. The balloon was inflated with radiopaque dye and evaluated on AP lateral C-arm images. Once adequate expansion of the balloon was noticed, the balloons were emptied and removed. Cement was mixed. Once the cement consistency was putty like, this was slowly inserted into the vertebral body through both Jamshidi needles. AP lateral views were confirmed to make sure no cement extravasation occurs. Once adequate cement was placed, time was given to allow cement setting. Jamshidi needles were then removed. Steri-Strips were applied along with 4 x 4 and Tegaderm. AP lateral views showed good cement fill. Patient was then taken to PACU in stable condition and will be discharged from their home. I was present for the entire case. Surgeon: Rodriguez Wood automotive parts clerk: Gay Law Admit VTE Documentation VTE Mechan Device Prophylaxis: SCD's Procedures Musculoskeletal [id number]: Other Procedure See Report
--- NOTE | 2024-03-14 14:59 | PCM.POST.ANE ---
Anesthesia: Postop Eval I Current Vital Signs Temperature: 98.1 F Pulse Rate: 80 Blood Pressure: 150/78 Respiratory Rate: 18 Pulse Ox: 100 Oxygen Delivery Method: Room Air Assessment Airway patent: Yes Spontaneous unlabored respirations: Yes Mental status: Awake and Calm nausea: No Vomiting: No Anesthesia Complication: No Fluid Hydration Crystalloid volume administer (ml): 600 Total IV fluid infused: 600 Progress Note Anesthesia document: Postop Eval 1 completed: Yes
--- NOTE | 2024-03-14 16:09 | POSTOPAN2_ITS ---
Anesthesia Postop Eval I Sum Postop Eval Completion status Anesthesia document: Postop Eval 1 completed: Yes Anesthesia Postop Eval I Summary Anesthesia Postop Eval I Summary: Anesthesia Postop Eval I: Assessment Summary Airway patent Yes 03/14/24 14:59 ELECTRONICS [email or web address].[email or web address] Spontaneous unlabored Yes 03/14/24 14:59 ELECTRONICS TESTER.LIANET respirations Mental status Awake,Calm 03/14/24 14:59 ELECTRONICS TESTER.MAYOBDylan nausea No 03/14/24 14:59 ELECTRONICS TESTER.MAYOBDylan Vomiting No 03/14/24 14:59 ELECTRONICS TESTER.MAYOBDylan Anesthesia Postop Eval I: Fluid Summary Crystalloid volume administer 600 03/14/24 14:59 ELECTRONICS TESTER.MAYOBY (ml) Colloids volume administered ( ml) Blood Product volume administered (ml) Total IV fluid infused 600 03/14/24 14:59 ELECTRONICS TESTER.LIANET Anesthesia Postop Eval I: Summary Notes Anesthesia Complication No 03/14/24 14:59 ELECTRONICS TESTER.LIANET Anesthesia Complication Comment: Post-operative progress note Anesthesia: Postop Eval II Evaluation Mental status: Awake and Calm Pain Level: 1 nausea: No Vomiting: No Complications Anesthesia Complication: No
--- NOTE | 2024-03-14 16:09 | PCM.POSTANE2 ---
Anesthesia Postop Eval I Sum Postop Eval Completion status Anesthesia document: Postop Eval 1 completed: Yes Anesthesia Postop Eval I Summary Anesthesia Postop Eval I Summary: Anesthesia Postop Eval I: Assessment Summary Airway patent Yes 03/14/24 14:59 RECONNAISSANCE [email or web address].[email or web address] Spontaneous unlabored Yes 03/14/24 14:59 RECONNAISSANCE CREWMEMBER.LIANET respirations Mental status Awake,Calm 03/14/24 14:59 RECONNAISSANCE CREWMEMBER.MAYOBDylan nausea No 03/14/24 14:59 RECONNAISSANCE CREWMEMBER.MAYOBDylan Vomiting No 03/14/24 14:59 RECONNAISSANCE CREWMEMBER.MAYOBDylan Anesthesia Postop Eval I: Fluid Summary Crystalloid volume administer 600 03/14/24 14:59 RECONNAISSANCE CREWMEMBER.MAYOBY (ml) Colloids volume administered ( ml) Blood Product volume administered (ml) Total IV fluid infused 600 03/14/24 14:59 RECONNAISSANCE CREWMEMBER.LIANET Anesthesia Postop Eval I: Summary Notes Anesthesia Complication No 03/14/24 14:59 RECONNAISSANCE CREWMEMBER.LIANET Anesthesia Complication Comment: Post-operative progress note Anesthesia: Postop Eval II Evaluation Mental status: Awake and Calm Pain Level: 1 nausea: No Vomiting: No Complications Anesthesia Complication: No
[2024-03-16 08:31] LABS: Hepatitis A AB, Total Negative (Negative)
== END 2024-03-14 16:03 | disposition home or self-care (01) ==
LOC: SDC 12:05 → AC 12:06
PROVIDERS: PCP Family Medicine; Referring Provider Orthopaedic Surgery Orthopaedic Surgery of the Spine; Visit Provider Orthopaedic Surgery Orthopaedic Surgery of the Spine
PROC: (CPT 22513; principal; 2024-03-14 14:00)
DX: M84.68XA Pathological fracture in other disease, other site, initial encounter for fracture (principal); M85.88 Other specified disorders of bone density and structure, other site; I10 Essential (primary) hypertension; W18.30XA Fall on same level, unspecified, initial encounter; K21.9 Gastro-esophageal reflux disease without esophagitis; M79.7 Fibromyalgia; Z79.899 Other long term (current) drug therapy
CPT/HCPCS: 22513; 72020; 76000; 86703; 86706; 86708; 86803; 86850; 86900; 86901; 87077; 87081; 88307; 88311; J7120; J2405

== ENCOUNTER → 2024-03-31 | Outpatient (CLI) | payer MEDICARE, SELFPAY ==
[2024-03-31 13:02] LABS: Anion Gap 8 (5-15); BUN 13 mg/dL (7-18); BUN/Creat Ratio 16.6 RATIO (10-20); Calcium,Total 9.9 mg/dL (8.5-10.1); Chloride 92 mmol/L (98-107); Creatinine, Serum 0.78 mg/dL (0.55-1.02); EST Glomerular Filtration Rate 75 mL/min (>60); Est Glom Filt Rate - Afr Amer 90 mL/min (>60); Glucose 105 mg/dL (74-106); Potassium 4.7 mmol/L (3.5-5.1); Sodium Level 124 mmol/L (136-145)
[2024-03-31 15:22] LABS: Vitamin D,25 Hydroxy 42.2 ng/mL
== END | disposition home or self-care (01) ==
LOC: BFHLAB 10:48
PROVIDERS: PCP Family Medicine; Referring Provider Family Medicine; Visit Provider Family Medicine
DX: E87.1 Hypo-osmolality and hyponatremia (principal); M81.0 Age-related osteoporosis without current pathological fracture
CPT/HCPCS: 36415; 80048; 82306

== ENCOUNTER → 2025-02-08 | Outpatient (CLI) | payer MEDICARE, SELFPAY ==
[2025-02-08 15:37] LABS: Hematocrit 39.1 % (37-47); Hemoglobin 12.8 g/dL (12.0-15.0); Immature Granulocytes Count 0.020 X10^3/uL (0.0-0.0); Mean Corp Hgb Conc 32.7 g/dL (32-36); Mean Corpuscular Volume 92.0 fL (81-99); Mean Platelet Vol. 9.8 fl (6.2-12.0); NRBC Flagged by Analyzer 0 % (0-5); Platelet Count 285 K/mm3 (150-450); RBC Distribution Width CV 12.5 % (11.6-14.6); RBC Distribution Width SD 42.2 fl (35.1-43.9); Red Blood Count 4.25 M/mm3 (4.2-5.4); White Blood Count 7.2 K/mm3 (4.4-11.0)
[2025-02-08 16:13] LABS: AST(SGOT) 17 U/L (<=31); Alanine Aminotransfer ALT/SGPT 9 U/L (<=34); Albumin, Serum 4.1 g/dL (3.4-4.8); Alkaline Phosphatase 80 U/L (35-104); Anion Gap 10 (5-15); BUN 17 mg/dL (4-19); BUN/Creat Ratio 23.0 RATIO (10-20); Calcium,Total 9.3 mg/dL (7.6-11.0); Carbon Dioxide 23.3 mmol/L (21.0-32.0); Chloride 96 mmol/L (98-108); Globulin 2.6 g/dL (2.2-4.2); Glucose 97 mg/dL (70-99); Potassium 5.0 mmol/L (3.3-5.1); Vitamin D,25 Hydroxy 25.7 ng/mL (30-100)
== END | disposition home or self-care (01) ==
LOC: BFHLAB 13:45
PROVIDERS: PCP Family Medicine; Visit Provider Family Medicine
DX: I10 Essential (primary) hypertension (principal); K21.9 Gastro-esophageal reflux disease without esophagitis; M81.0 Age-related osteoporosis without current pathological fracture
CPT/HCPCS: 36415; 80053; 82306; 85025